=== PATIENT | female | born 1955 | race Two or more races ===

== ENCOUNTER 2018-11-24 19:55 | Inpatient (IN) | payer MEDICAID ==
[~2018-11-24] VITALS: Ht 162.6 cm; Wt 69.9 kg
--- NOTE | 2018-11-24 20:50 | NUR ---
BIN RA AMBULANCE FROM HD. PT IS AWAKE, RESPONDS TO TACTILE STIMULI. PT IS ON VENT AC 16 TV500 35% PEEP+5. C/O LOW BP REPOTED SBP 80-90 WHILE HAVING HD WHICH ONLY LAST X 1 HOUR PRIOR TO ARRIVAL AT THE ER. TEMP IS 100.2 RECTALLY. MADE AWARE. TO ER BED 2.
--- NOTE | 2018-11-24 20:54 | NUR ---
PT REC'D TRACHED VIA SHILEY 6 ON [facility] VENT SETTINGS GIVEN FROM TRANSPORT RT. PT SHOWS NO SIGNS OF RESP DISTRESS OR SOB. SX'D FOR THICK MOD AMT OF PALE YELLOW SECRETIONS. ALARMS ARE SET AND AUDIBLE. VENT PLUGGED INTO RED OUTLET. AMBU BAG BEDSIDE. WILL CONTINUE TO MONITOR. Addendum: 11/24/18 at 2055 by DIANA YOUNG RT Amended: Links added.
[2018-11-24] MEDS ORDERED: IV NS 0.9% 500 ML BAG IV ONE ×2 (21:00→22:30)
--- NOTE | 2018-11-24 21:30 | NUR ---
IV LINE OBTAINED ON RFA 20G. CULTURES OBTAINED
[2018-11-24 21:47] LABS: CALCIUM, SERUM 10.1 mg/dL (8.5-10.1); CARBON DIOXIDE 21 mmol/L (21-32); CHLORIDE 99 mmol/L (98-107); CREATININE 2.8 mg/dL (0.6-1.3); GLUCOSE 144 mg/dL (74-106); POTASSIUM 4.1 mmol/L (3.5-5.1); SODIUM SERUM 136 mmol/L (136-145); UREA NITROGEN, BLOOD 50 mg/dL (7-18)
[2018-11-24 21:52] LABS: ALANINE AMINOTRANSFERASE 7 U/L (12-78); ALBUMIN 1.6 g/dL (3.4-5.0); ALKALINE PHOSPHATASE 338 U/L (46-116); ASPARTATE AMINOTRANSFERASE 32 U/L (15-37); BILIRUBIN,DIRECT 0.1 mg/dL (0.0-0.2); BILIRUBIN,TOTAL 0.4 mg/dL (0.2-1.0); TOTAL PROTEIN, SERUM 5.8 g/dL (6.4-8.2)
--- NOTE | 2018-11-24 22:10 | NUR ---
BLOOD DRAWN WITH TECH AT BEDSIDE. EKG DONE. XRAY AWAITNG AT DOOR.
--- NOTE | 2018-11-24 22:11 | NUR ---
CALLED NURSING SUP. FOR LE BED
[2018-11-24 22:30] LABS: BASOPHILS # (AUTO) 0.1 /CMM (0.0-0.2); BASOPHILS % (AUTO) 0.3 % (0.0-2.0); EOSINOPHILS % (AUTO) 0.1 % (0.0-6.0); LYMPHOCYTES # (AUTO) 1.6 /CMM (0.8-4.8); LYMPHOCYTES % (AUTO) 3.5 % (20.0-44.0); MEAN CORPUSCULAR HGB CONC 31 g/dl (31.0-36.0); MEAN CORPUSCULAR VOLUME 92 fL (82-100); MONOCYTES # (AUTO) 0.7 /CMM (0.1-1.30); MONOCYTES % (AUTO) 1.6 % (2.0-12.0); NEUTROPHILS # (AUTO) 42.9 /CMM (1.8-8.9); NEUTROPHILS % (AUTO) 94.5 % (43.0-81.0); PLATELET COUNT (AUTO) 376 /CMM (150-450)
[2018-11-24] MEDS ORDERED: MEROPENEM 1 G in IV NS 0.9% 100 ML IV ONE (22:30)
[2018-11-24] MEDS ORDERED: VANCOMYCIN 1 GM in IV D5W 250 ML IV ONE (22:30)
[2018-11-24 22:38] LABS: RED BLOOD CELL COUNT(AUTO) 1.91 MIL/uL (4.0-5.2)
[2018-11-24 22:39] LABS: HEMOGLOBIN 5.4 g/dL (11.5-14.8); WHITE BLOOD COUNT (AUTO) 45.3 K/uL (4.3-11.0)
[2018-11-24 22:40] LABS: HEMATOCRIT 18 % (33-45)
--- NOTE | 2018-11-24 22:40 | NUR ---
URINE COLLECTED VIA STRAIGHT CATH. SENT TO LAB
--- NOTE | 2018-11-24 22:42 | NUR ---
PT BEING WHELED TO CT ON GURNEY WITH RN AND RT AT BEDSIDE. PT IS GOING STRAIGHT TO UNIT AFTER CT SCAN.
[2018-11-24] MEDS ORDERED: WATER FOR INJECTION,STERILE 10 ML ONE (22:59)
[2018-11-24] MEDS ORDERED: MEROPENEM 1 G VIAL IV ONE (22:59)
[2018-11-24] MEDS ORDERED: HYDROCODONE/APAP 5/325MG 1 EACH TABLET PO PRN (23:00)
[2018-11-24] MEDS ORDERED: MAG HYDROX/AL HYDROX/SIMETH 30 ML UDC PO PRN (23:00)
[2018-11-24] MEDS ORDERED: MAGNESIUM HYDROXIDE 30 ML UDC PO PRN (23:00)
[2018-11-24] MEDS ORDERED: ONDANSETRON HCL/PF 4 MG/2 ML VIAL IVP PRN (23:00)
[2018-11-24] MEDS ORDERED: MEROPENEM 500 MG in IV NS 0.9% 50 ML IV SCH (23:00)
[2018-11-24] MEDS ORDERED: Z GUARD REMEDY 2 OZ OINT TP PRN (23:00)
[2018-11-24] MEDS ORDERED: ACETAMINOPHEN 325 MG TABLET PO PRN (23:00)
[2018-11-24] MEDS ORDERED: ZOLPIDEM TARTRATE 5 MG TABLET PO PRN (23:00)
[2018-11-24 23:01] LABS: APPEARANCE,URINE Clear (CLEAR); BILIRUBIN,URINE Negative (NEGATIVE); BLOOD, URINE Moderate Ery/uL (NEGATIVE); KETONES,URINE Negative (NEGATIVE); LEUKOCYTE ESTERASE ,URINE Large (NEGATIVE); NITRITE, URINE Negative (NEGATIVE); PH,URINE 7.5 (5.0-8.0); PROTEIN,URINE >=300 mg/dl (NEGATIVE); UGLUCOSE Negative (NEGATIVE); UROBILINOGEN,URINE 0.2 EU/dL (0.2)
[2018-11-24 23:05] LABS: COLOR,URINE TURBID (YELLOW)
--- NOTE | 2018-11-24 23:15 | NUR ---
RECEIVED REPORT FROM ALLEY WORKERDIAMOND VILA FOR JOHNATHAN.
[2018-11-24] MEDS ORDERED: DEXTROSE 50%-WATER 50 ML DISP.SYRIN IV PRN (23:30)
--- NOTE | 2018-11-24 23:40 | NUR ---
MOLDING MACHINE OPERATOR HELPER OPENING NOTES RECEIVED PT FROM ER VIA MAURICE VALDEZ OF SEPSIS, SEVERE ANEMIA UNDER DR. ESPINOSA. PATIENT PLACED ON COIL PLACER SR WITH HR 91. VENT TRACH DEPENDENT, SETTING TOLERATING WELL BY PATIENT. VITAL SIGNS: SPO2 99%, BP 119/56, HR 91, TEMP 99, RR 19. PT NONVERBAL BUT RESPONDS TO TACTILE STIMULI. SKIN ASSESSMENT DONE, PICTURES TAKEN AND RECORDED. IV SITE RFA 20G SITE C/D/I. AURY HD CATH SITE C/D/I, BRUIT AND THRILL NOTED. RECTAL TUBE IN PLACE, DRAINING BROWN/LIQUID STOOL NOTED. SAFETY MEASURES IN PLACE. AWAITING ADMISSION ORDERS. WILL CONT TO MONITOR PT CLOSELY. Addendum: 11/25/18 at 0753 by SABRA CASILLAS RN CORRECTION: LE VILA NOTES
[2018-11-24] MEDS ORDERED: VANCOMYCIN 1 GM VIAL ONE (23:42)
[2018-11-25] VITALS (14 sets, daily range): BP systolic 119–161; BP diastolic 52–72
[2018-11-25] MEDS: BLOOD SUGAR DIAGNOSTIC 1 EACH STRIP IN SCH ×5 (00:25→23:38)
[2018-11-25 00:48] LABS: BACTERIA,URINE Many /HPF (None Seen); SQUAMOUS EPITHELIAL CELL,UR Many /HPF (None Seen); WBC,URINE 51-80 /HPF (0-3); YEAST,URINE Few /HPF (None Seen)
[2018-11-25 00:52] LABS: BAND % (MANUAL) 13 % (0.0-5.0); LYMPHOCYTES % (MANUAL) 2 % (16-48); MONOCYTES % (MANUAL) 12 % (0-11.0); NEUTROPHILS % (MANUAL) 70 (42-76)
[2018-11-25] MEDS ORDERED: MEROPENEM 250 MG in IV NS 0.9% 50 ML IV SCH (00:54)
[2018-11-25] MEDS ORDERED: INSULIN REGULAR, HUMAN 100 UNIT/ML 3 ML VIAL ONE (01:32)
[2018-11-25] MEDS: INSULIN REGULAR, HUMAN 100 UNIT/ML 3 ML VIAL SQ PRN ×2 (01:38→06:39)
[2018-11-25] MEDS ORDERED: VANCOMYCIN 1 GM in IV NS 0.9% 250 ML IV SCH (02:00)
--- NOTE | 2018-11-25 07:15 | NUR ---
LE RN CLOSING NOTES PATIENT OBTUNDED BUT RESPONDS TO TACTILE STIMULI. ON TELE MONITOR SR WITH HR 80S. VENT TRACH DEPENDENT, SETTING TOLERATING WELL BY PATIENT. IV SITE RFA 20G SITE C/D/I. AURY HD CATH SITE C/D/I, BRUIT AND THRILL NOTED. RECTAL TUBE IN PLACE, DRAINING BROWN/LIQUID STOOL NOTED. SAFETY MEASURES IN PLACE. ALL MD ORDERS ATTENDED. ALL NEEDS ANTICIPATED AND MET. ENDORSED TO AM RN FOR JOHNATHAN.
--- NOTE | 2018-11-25 07:30 | NUR ---
JOHANNA RN AM NOTES PT IN BED, OBTUNDED, OPENS EYES, SHILEY 6 TO MECHANICAL VENT, SETTINGS ORDERED, BREATHING EVEN AND UNLABORED, SR HR 83 ON TELE MONITOR, NO SIGNS OF PAIN, IV SITE RFA 20G SITE C/D/I. WITH ONGOING BLOOD TRANSFUSION BAG #1, AURY HD CATH SITE C/D/I, BRUIT AND THRILL NOTED. RECTAL TUBE IN PLACE, DRAINING BROWN/LIQUID STOOL NOTED. SAFETY MEASURES IN PLACE. FOR WOUND CONSULT, SEE NURSING FLOWSHEET FOR SKIN ISSUES. CALL LIGHT WITHIN REACH, SAFETY MEASURES IN PLACE. WILL CONT TO MONITOR PT CLOSELY. Addendum: 11/25/18 at 1121 by NATHALY QUIGLEY RN ADDENDUM GT IN PLACE, CLAMPED. NPO FOR NOW. ABDOMEN FIRM AND SLIGHTLY DISTENDED
[2018-11-25] MEDS ORDERED: FEE PK DOSING 1 MIN EA MC ONE (07:34)
[2018-11-25] MEDS ORDERED: VANCOMYCIN 500 MG in IV D5W 100 ML IV PRN (08:00)
[2018-11-25 08:16] LABS: OCCULT BLOOD STOOL NEGATIVE (NEGATIVE)
--- NOTE | 2018-11-25 08:39 | NUR ---
TD RN NOTES 2ND BAG 1 UNIT PRBC STARTED.
[2018-11-25] MEDS: MEROPENEM 500 MG in IV NS 0.9% 50 ML IV SCH ×2 (08:54→21:13)
[2018-11-25] MEDS ORDERED: PANTOPRAZOLE 40 MG VIAL IV SCH (09:00)
[2018-11-25] MEDS ORDERED: FAMOTIDINE/PF INJ 20 MG/2 ML VIAL IV SCH (09:00)
[2018-11-25] MEDS: NEXIUM 40 MG VIAL IV SCH (09:13)
[2018-11-25] MEDS ORDERED: INSU100V10 SQ (09:20)
[2018-11-25] MEDS ORDERED: INSU100V27 SQ (09:20)
[2018-11-25] MEDS ORDERED: FAMO-130 GT (09:20)
[2018-11-25] MEDS ORDERED: AMIO200T4 GT (09:20)
[2018-11-25] MEDS ORDERED: ATRO10DR OP (09:20)
[2018-11-25] MEDS ORDERED: LACT1CAP61 GT (09:20)
[2018-11-25] MEDS ORDERED: CHLO473M3 MM (09:20)
[2018-11-25] MEDS ORDERED: ONDA4TAB11 PO (09:20)
[2018-11-25] MEDS ORDERED: MINE3.5O OP (09:20)
[2018-11-25] MEDS ORDERED: DOCU-141 GT (09:20)
[2018-11-25] MEDS ORDERED: SEVE800T8 GT (09:20)
[2018-11-25] MEDS ORDERED: LEVE1000 GT (09:20)
[2018-11-25] MEDS ORDERED: PHEN100C4 GT (09:20)
[2018-11-25] MEDS ORDERED: PRED2.5T GT (09:20)
[2018-11-25] MEDS ORDERED: FERR300L GT (09:20)
[2018-11-25] MEDS ORDERED: MIDO5TAB GT (09:20)
[2018-11-25] MEDS ORDERED: LACO100T2 GT (09:20)
[2018-11-25] MEDS ORDERED: ACET-73 GT (09:20)
[2018-11-25] MEDS ORDERED: NUTR100037 GT (09:20)
[2018-11-25] MEDS ORDERED: WARF3TAB59 GT (09:20)
[2018-11-25] MEDS ORDERED: EPOE200011 IJ (09:20)
--- NOTE | 2018-11-25 09:30 | NUR ---
TD RN NOTES SEEN BY DR. ROBERT MONSIVAIS. GT DISLODGED. WILL CONSULT FOR SURGERY.
[2018-11-25] MEDS ORDERED: HYDR-4384 PO (09:34)
[2018-11-25] MEDS ORDERED: NA P133E RC (09:57)
[2018-11-25] MEDS ORDERED: CLON0.1T GT (09:57)
[2018-11-25] MEDS ORDERED: HEPA100D33 SQ (09:57)
[2018-11-25] MEDS ORDERED: CHOL10002 PO (09:57)
[2018-11-25] MEDS ORDERED: ATOR40TA GT (09:57)
[2018-11-25] MEDS ORDERED: ASPI-605 GT (09:57)
[2018-11-25] MEDS ORDERED: SEVE0.8P GT (09:57)
[2018-11-25] MEDS ORDERED: MAGN400O6 GT (09:57)
[2018-11-25] MEDS ORDERED: CLOP75TA15 PO (09:57)
[2018-11-25] MEDS ORDERED: FOLI0.8T2 PO (09:57)
[2018-11-25] MEDS ORDERED: BISA10SU61 RC (09:57)
[2018-11-25] MEDS ORDERED: INSU100I26 SQ (09:57)
--- NOTE | 2018-11-25 11:51 | NUR ---
TD RN N NOTES ACCUCHECK DONE. BS 182 MG/DL. NO INSULIN COVERAGE GIVEN AT THIS TIME.
[2018-11-25 12:54] LABS: ALBUMIN 1.6 g/dL (3.4-5.0); BILIRUBIN,TOTAL 0.5 mg/dL (0.2-1.0); CALCIUM, SERUM 9.5 mg/dL (8.5-10.1); CREATININE 2.8 mg/dL (0.6-1.3); MAGNESIUM 2.5 mg/dL (1.8-2.4); PHOSPHORUS 3.5 mg/dL (2.5-4.9); POTASSIUM 4.8 mmol/L (3.5-5.1); TOTAL PROTEIN, SERUM 6.1 g/dL (6.4-8.2)
[2018-11-25 13:00] LABS: BASOPHILS # (AUTO) 0.1 /CMM (0.0-0.2); BASOPHILS % (AUTO) 0.2 % (0.0-2.0); EOSINOPHILS % (AUTO) 0.2 % (0.0-6.0); HEMATOCRIT 32 % (33-45); HEMOGLOBIN 10.6 g/dL (11.5-14.8); LYMPHOCYTES # (AUTO) 0.9 /CMM (0.8-4.8); MEAN CORPUSCULAR HGB CONC 34 g/dl (31.0-36.0); MEAN CORPUSCULAR VOLUME 88 fL (82-100); MONOCYTES # (AUTO) 0.8 /CMM (0.1-1.30); MONOCYTES % (AUTO) 2.6 % (2.0-12.0); NEUTROPHILS # (AUTO) 28.5 /CMM (1.8-8.9); PLATELET COUNT (AUTO) 374 /CMM (150-450); RED BLOOD CELL COUNT(AUTO) 3.59 MIL/uL (4.0-5.2)
[2018-11-25 13:02] LABS: THYROID STIMULATING HORMONE 3.767 uIU/mL (0.358-3.74)
[2018-11-25 13:09] LABS: WHITE BLOOD COUNT (AUTO) 30.3 K/uL (4.3-11.0)
[2018-11-25 13:45] LABS: BAND % (MANUAL) 7 % (0.0-5.0); METAMYELOCYTES % 1 % (0-0); MONOCYTES % (MANUAL) 7 % (0-11.0); MYELOCYTES % 2 % (0-0); NEUTROPHILS % (MANUAL) 83 (42-76)
--- NOTE | 2018-11-25 17:19 | NUR ---
JOHANNA VILA N NOTES ACCUCHECK DONE. BS 215 MG/DL. NO INSULIN COVERAGE GIVEN AT THIS TIME. PATIENT REMAINS NPO SINCE LAST NIGHT. Addendum: 11/25/18 at 1754 by NATHALY QUIGLEY RN ADDENDUM: DR. ROBERT MONSIVAIS NOTIFIED BY CHARGE NURSE GEORGES.
--- NOTE | 2018-11-25 18:30 | NUR ---
TD RN CLOSING NOTES PT IN BED, OBTUNDED, OPENS EYES, SHILEY 6 TO MECHANICAL VENT, SETTINGS ORDERED, BREATHING EVEN AND UNLABORED, SR HR 80s ON TELE MONITOR, NO SIGNS OF PAIN, IV SITE RFA 20G SITE C/D/I. FLUSHES WELL SITE CLEAR. AURY HD CATH SITE C/D/I, BRUIT AND THRILL NOTED. RECTAL TUBE CHANGED AND IN PLACE, IRRIGATED, DRAINING BROWN/LIQUID STOOL NOTED. SAFETY MEASURES IN PLACE. STILL FOR WOUND CONSULT, REMAINS NPO. G TUBE REMOVED BY DR. GARCIA EARLIER. CDI DRESSING IN PLACE. CALL LIGHT WITHIN REACH, SAFETY MEASURES IN PLACE. ALL NEEDS MET. PM CARE AND WOUND TREATMENT DONE EARLIER. TURNED AND REPOSITIONED Q 2 HOURS. SUCTIONED PRN, HOB ELEVATED. WILL ENDORSE TO NEXT SHIFT FOR JOHNATHAN.
--- NOTE | 2018-11-25 20:00 | NUR ---
RN INITIAL NOTES RECEIVED PT IN BED, OBTUNDED, OPENS EYES, SHILEY 6 TO MECHANICAL VENT, SETTINGS ORDERED, BREATHING EVEN AND UNLABORED, SR HR 80s ON TELE MONITOR, NO SIGNS OF PAIN, IV SITE RFA 20G SITE C/D/I. FLUSHES WELL SITE CLEAR. AURY HD CATH SITE C/D/I, BRUIT AND THRILL NOTED. RECTAL TUBE IN PLACE. SAFETY MEASURES IN PLACE. PT NPO. CALL LIGHT WITHIN REACH, SAFETY MEASURES IN PLACE. ALL NEEDS MET. WILL CONT TO MONITOR.
[2018-11-26] VITALS: BP 137/42
[2018-11-26 04:00] VITALS: BP 153/45
--- NOTE | 2018-11-26 05:17 | NUR ---
PATIENT RECEIVED ON TRACH TO VENT WITH SETTINGS OF AC 16, 500 VT, 35%, +5. SUCTIONED FOR MINIMAL, THIN, YELLOW-CREAM SECRETIONS. AMBU BAG AT BEDSIDE. VENT AND PULSE OXIMETER ALARMS AUDIBLE AND VISIBLE. VENT PLUGGED INTO RED OUTLET. Addendum: 11/26/18 at 0519 by BRIANNA MOON RT Amended: Links added.
[2018-11-26] MEDS: BLOOD SUGAR DIAGNOSTIC 1 EACH STRIP IN SCH ×3 (05:37→18:31)
--- NOTE | 2018-11-26 07:02 | NUR ---
RN CLOSING NOTES NO CHANGE IN PTS CONDITION OVER NIGHT. ALL NEEDS ANTICIPATED AND MET. WILL ENDORSE TO AM RN.
--- NOTE | 2018-11-26 07:30 | NUR ---
RN NOTES RECEIVED PATIENT IN BED, OBTUNDED, TRACH AT MIDLINE POSITION, TRACH TO MECHANICAL VENT, SETTINGS PRESCRIBED, TOLERATING WELL. NO SOB NOTED. PATIENT CURRENTLY ON DIALYSIS TREATMENT. SINUS RHYTHM ON THE MONITOR WITH HR ON THE 80'S. IV ACCESS ON THE RFA 20G IN PLACE AND INTACT, PATENT ON FLUSHING. AVF ON THE AURY. RECTAL TUBE IN PLACE, DRAINING BROWN/LIQUID STOOL NOTED. SAFETY MEASURES OBSERVED AND MAINTAINED IN PLACE. HOB ELEVATED. BED LOW AND LOCKED POSITIONED. CALL LIGHT PLACED WITHIN REACH. WILL CONTINUE TO MONITOR AND ANTICIPATE NEEDS.
[2018-11-26 08:00] VITALS: BP_SYST 106; BP_SYST 119; BP_DIAS 39; BP_DIAS 56
[2018-11-26] MEDS: NEXIUM 40 MG VIAL IV SCH (09:19)
[2018-11-26] MEDS: MEROPENEM 500 MG in IV NS 0.9% 50 ML IV SCH ×2 (09:19→21:17)
--- NOTE | 2018-11-26 11:55 | NUR ---
WOUND CARE CONSULT: PT PRESENTS WITH MULTIPLE SKIN ISSUES AND WOUNDS, PRESENT ON ADMISSION INCLUDING STAGE 4 ULCER TO SACRUM, STAGE 2 ULCERS TO BUTTOCKS, LIQUID STOOL (RECTAL TUBE IN PLACE), RT FOOT AMPUTATION SITE WITH PAULETTE, RT HEEL BROWN DEEP TISSUE INJURY, LEFT BELOW KNEE AMPUTATION STUMP WITH INTACT DEEP TISSUE INJURY, RT HAND WOUND WITH YELLOW ADHERENT SLOUGH AND ODOROUS OLD G TUBE SITE (G TUBE REMOVED BY MD YESTERDAY PER NURSING REPORT). RECOMMENDATIONS MADE FOR SKIN PROTECTION AND WOUND CARE. DISCUSSED WITH NURSING STAFF. DEFER TO SURGEON FOR G TUBE SITE. WILL SEE PRN. SURGICAL AND DPM CONSULTS RECOMMENDED. DR HORNE AND DR KASH OLVERA NOTIFIED OF CONSULT REQUESTS. MD IN AGREEMENT WITH PLAN OF CARE. Addendum: 11/26/18 at 1159 by CAMDEN LEOSU Amended: Links added. Addendum: 11/26/18 at 1203 by CAMDEN RALPH WNTRACEU DEFER TO DPM FOR LOWER EXTREMITIES.
[2018-11-26 12:00] VITALS: BP 153/47
[2018-11-26] MEDS ORDERED: HYDROGEL DRESSING 90 GM TUBE TP PRN (12:00)
[2018-11-26] MEDS: HYDROGEL DRESSING 90 GM TUBE TP SCH (12:00)
[2018-11-26] MEDS: DAKINS QUARTER STRENGTH (0.125%) 480 ML BOTTLE TOP SCH (12:00)
[2018-11-26 16:00] VITALS: BP 131/33
[2018-11-26] MEDS: IV D5/ 0.9% NACL 1,000 ML IV PRN (18:44)
--- NOTE | 2018-11-26 19:32 | NUR ---
RN NOTES ENDORSED PATIENT FOR CONTINUITY OF CARE. NOT ON ANY FORM OF DISTRESS. NO ACUTE CHANGES WITHIN THE SHIFT. ALL NURSING NEEDS ATTENDED AND MET. SAFETY MEASURES IN PLACE AT ALL TIMES. Addendum: 11/27/18 at 0754 by GILDARDO LOZA RN INSULIN NOT GIVEN ALL THROUGH OUT THE DAY DUE TO PATIENT ON NPO STATUS
--- NOTE | 2018-11-26 19:38 | NUR ---
RT NOTE PATIENT RECEIVED TRACH'D ON MECHANICAL VENT. PATIENT IS TOLERATING CURRENT ORDERED SETTINGS. NO RESPIRATORY DISTRESS NOTED. MECHANICAL VENT IS PLUGGED INTO RED OUTLET. ALARMS ARE SET AND AUDIBLE. EMERGENCY EQUIPMENT IS AT PATIENT BEDSIDE. Addendum: 11/27/18 at 0612 by NATALIE GARCIA RT Amended: Links added.
--- NOTE | 2018-11-26 19:40 | NUR ---
RN INITIAL LE NOTES RECEIVED PT IN BED, OBTUNDED, OPENS EYES, SHILEY 6 TO AC MODE ON VENT, SETTINGS ORDERED, BREATHING EVEN AND UNLABORED, SR HR 70s ON TELE MONITOR, NO SIGNS OF PAIN, IV SITE RFA 20G SITE C/D/I. FLUSHES WELL SITE CLEAR. AURY HD CATH SITE C/D/I, BRUIT AND THRILL NOTED. RECTAL TUBE IN PLACE. SAFETY MEASURES IN PLACE. PT NPO GT MALFUNCTION. CALL LIGHT WITHIN REACH, SAFETY MEASURES IN PLACE. ALL NEEDS MET. WILL CONT TO MONITOR.
[2018-11-26 20:00] VITALS: BP 111/50
[2018-11-27] VITALS (7 sets, daily range): BP systolic 115–139; BP diastolic 48–71
[2018-11-27] MEDS: BLOOD SUGAR DIAGNOSTIC 1 EACH STRIP IN SCH ×5 (00:13→23:44)
[2018-11-27] MEDS: INSULIN REGULAR, HUMAN 100 UNIT/ML 3 ML VIAL SQ PRN ×3 (00:14→23:46)
--- NOTE | 2018-11-27 06:42 | NUR ---
RN LE CLOSING NOTES ENDORSED PT IN BED, OBTUNDED, OPENS EYES, SHILEY 6 TO AC MODE ON VENT, SETTINGS ORDERED, BREATHING EVEN AND UNLABORED, SR HR 70s ON TELE MONITOR, NO SIGNS OF PAIN, IV SITE RFA 20G SITE C/D/I. FLUSHES WELL SITE CLEAR. AURY HD CATH SITE C/D/I, BRUIT AND THRILL NOTED. RECTAL TUBE IN PLACE. SAFETY MEASURES IN PLACE. PT NPO GT MALFUNCTION. CALL LIGHT WITHIN REACH, SAFETY MEASURES IN PLACE. ALL NEEDS MET. WILL CONT TO MONITOR.
--- NOTE | 2018-11-27 07:30 | NUR ---
RN NOTES RECEIVED PATIENT IN BED, NOT ON ANY FORM OF DISTRESS, TOLERATING VENT SETTING WELL. NO SOB NOTED. SINUS RHYTHM ON THE MONITOR WITH HR ON THE 80'S. NO INDICATION OF PAIN AT THIS TIME. IV ACCESS ON THE RFA 20G IN PLACE AND INTACT, PATENT ON FLUSHING. WITH ONGOING IVF OF D5NS AT 75CC/HR. AVF ON THE AURY. RECTAL TUBE IN PLACE, DRAINING BROWN/LIQUID STOOL. SAFETY MEASURES OBSERVED AND MAINTAINED IN PLACE. HOB ELEVATED. BED LOW AND LOCKED POSITIONED. CALL LIGHT PLACED WITHIN REACH. WILL CONTINUE TO MONITOR AND ANTICIPATE NEEDS.
[2018-11-27 07:32] LABS: BASOPHILS # (AUTO) 0.1 /CMM (0.0-0.2); BASOPHILS % (AUTO) 0.4 % (0.0-2.0); EOSINOPHILS % (AUTO) 0.3 % (0.0-6.0); HEMATOCRIT 26 % (33-45); HEMOGLOBIN 8.6 g/dL (11.5-14.8); LYMPHOCYTES # (AUTO) 1.2 /CMM (0.8-4.8); LYMPHOCYTES % (AUTO) 5.5 % (20.0-44.0); MEAN CORPUSCULAR HGB CONC 33 g/dl (31.0-36.0); MEAN CORPUSCULAR VOLUME 90 fL (82-100); MONOCYTES # (AUTO) 0.8 /CMM (0.1-1.30); MONOCYTES % (AUTO) 3.6 % (2.0-12.0); NEUTROPHILS % (AUTO) 90.2 % (43.0-81.0); PLATELET COUNT (AUTO) 297 /CMM (150-450); RED BLOOD CELL COUNT(AUTO) 2.89 MIL/uL (4.0-5.2); WHITE BLOOD COUNT (AUTO) 22.2 K/uL (4.3-11.0)
[2018-11-27 08:06] LABS: CALCIUM, SERUM 8.3 mg/dL (8.5-10.1); CREATININE 2.8 mg/dL (0.6-1.3); MAGNESIUM 2.2 mg/dL (1.8-2.4); PHOSPHORUS 2.8 mg/dL (2.5-4.9); POTASSIUM 3.5 mmol/L (3.5-5.1)
[2018-11-27] MEDS: MEROPENEM 500 MG in IV NS 0.9% 50 ML IV SCH ×2 (08:45→21:11)
[2018-11-27] MEDS: HYDROGEL DRESSING 90 GM TUBE TP SCH (08:46)
[2018-11-27] MEDS: DAKINS QUARTER STRENGTH (0.125%) 480 ML BOTTLE TOP SCH (08:46)
[2018-11-27] MEDS: NEXIUM 40 MG VIAL IV SCH (08:47)
[2018-11-27] MEDS: IV D5/ 0.9% NACL 1,000 ML IV PRN (12:38)
--- NOTE | 2018-11-27 18:40 | NUR ---
RN NOTES PATIENT NOT GIVEN INSULIN DUE TO NPO STATUS
--- NOTE | 2018-11-27 19:13 | NUR ---
RN NOTES ENDORSED PATIENT FOR CONTINUITY OF CARE. NOT ON ANY FORM OF DISTRESS. NO ACUTE CHANGES WITHIN THE SHIFT. ALL NURSING NEEDS ATTENDED AND MET. SAFETY MEASURES IN PLACE AT ALL TIMES. CALL LIGHT PLACED WITHIN REACH
--- NOTE | 2018-11-27 20:00 | NUR ---
RN INITIAL NOTES RECEIVED PATIENT IN BED, NOT ON ANY FORM OF DISTRESS, TOLERATING VENT SETTING WELL. NO SOB NOTED. SINUS RHYTHM ON THE MONITOR WITH HR ON THE 80'S. NO INDICATION OF PAIN AT THIS TIME. IV ACCESS ON THE R UA IN PLACE AND INTACT, PATENT AND FLUSHING. WITH ONGOING IVF OF D5NS AT 75CC/HR. AVF ON THE AURY. RECTAL TUBE IN PLACE, DRAINING BROWN/LIQUID STOOL. SAFETY MEASURES OBSERVED AND MAINTAINED IN PLACE. HOB ELEVATED. BED IN LOW AND LOCKED POSITIONED. CALL LIGHT PLACED WITHIN REACH. WILL CONTINUE TO MONITOR.
[2018-11-28] VITALS: BP 117/51
[2018-11-28 04:00] VITALS: BP 133/50
--- NOTE | 2018-11-28 05:26 | NUR ---
RT TRACH TUBE IN PLACE, PATENT, AND SECURED. RECEIVED PATIENT ON VENT WITH ORDERED SETTINGS. ALARMS ON AND AUDIBLE. VENT PLUGGED IN THE RED OUTLET. AMBU BAG AND BACK UP TRACK BY THE BEDSIDE. SO SIGNS OF ANY RESPIRATORY DISTRESS AT THIS TIME. Addendum: 11/28/18 at 0528 by RADAMES GONZALEZ RT Amended: Links added.
[2018-11-28] MEDS: IV D5/ 0.9% NACL 1,000 ML IV PRN ×2 (06:20→23:39)
[2018-11-28] MEDS: BLOOD SUGAR DIAGNOSTIC 1 EACH STRIP IN SCH ×3 (06:20→17:47)
[2018-11-28] MEDS: INSULIN REGULAR, HUMAN 100 UNIT/ML 3 ML VIAL SQ PRN ×3 (06:27→17:48)
[2018-11-28 07:05] LABS: BASOPHILS % (AUTO) 0.3 % (0.0-2.0); EOSINOPHILS % (AUTO) 0.9 % (0.0-6.0); HEMATOCRIT 26 % (33-45); HEMOGLOBIN 8.6 g/dL (11.5-14.8); LYMPHOCYTES # (AUTO) 0.9 /CMM (0.8-4.8); LYMPHOCYTES % (AUTO) 4.7 % (20.0-44.0); MEAN CORPUSCULAR HGB CONC 34 g/dl (31.0-36.0); MEAN CORPUSCULAR VOLUME 90 fL (82-100); MONOCYTES # (AUTO) 0.7 /CMM (0.1-1.30); MONOCYTES % (AUTO) 3.8 % (2.0-12.0); NEUTROPHILS # (AUTO) 16.5 /CMM (1.8-8.9); NEUTROPHILS % (AUTO) 90.3 % (43.0-81.0); PLATELET COUNT (AUTO) 316 /CMM (150-450); RED BLOOD CELL COUNT(AUTO) 2.83 MIL/uL (4.0-5.2); WHITE BLOOD COUNT (AUTO) 18.2 K/uL (4.3-11.0)
--- NOTE | 2018-11-28 07:05 | NUR ---
RN NOTES RECEIVED PATIENT ON BED, VENT/TRACH DEPENDENT , TRACH SUCTIONING DONE, TOLERATING CURRENT VENT SETTING WELL, NO TELE SR HR IN 90'S , DRESSING TO ABDOMEN CLEAN, DRY AND INTACT, R UPPER ARM PICC LINE SITE CLEAN ,DRY AND INTACT, WITH D5NS AT 75CC/HR RUNNING , AVF ON THE AURY. RECTAL TUBE IN PLACE, DRAINING BROWN/LIQUID STOOL. SAFETY MEASURES OBSERVED AND MAINTAINED IN PLACE. HOB ELEVATED. BED IN LOCKED AND IN LOWEST POSITION . CALL LIGHT WITHIN EASY REACH. CONTINUE TO MONITOR.
--- NOTE | 2018-11-28 07:25 | NUR ---
RN CLOSING NOTES PT IN BED, OBTUNDED, OPENS EYES, ON VENT, SETTINGS ORDERED, BREATHING EVEN AND UNLABORED, SR HR 80s ON TELE MONITOR, NO SIGNS OF PAIN, IV SITE R UA MIDLINE. FLUSHES WELL SITE CLEAR, FLUIDS ORDERED. AURY HD CATH SITE C/D/I, BRUIT AND THRILL NOTED. RECTAL TUBE IN PLACE. SAFETY MEASURES IN PLACE. PT NPO R/T GT MALFUNCTION. CALL LIGHT WITHIN REACH, SAFETY MEASURES IN PLACE. ALL NEEDS MET. WILL ENDORSE TO AM RN.
[2018-11-28 08:00] VITALS: BP_SYST 132; BP_SYST 134; BP_DIAS 25; BP_DIAS 65
[2018-11-28 08:19] LABS: BAND % (MANUAL) 8 % (0.0-5.0); EOSINOPHILS % (MANUAL) 4 % (0-4); LYMPHOCYTES % (MANUAL) 10 % (16-48); METAMYELOCYTES % 1 % (0-0); MONOCYTES % (MANUAL) 5 % (0-11.0); MYELOCYTES % 1 % (0-0); NEUTROPHILS % (MANUAL) 69 (42-76)
[2018-11-28] MEDS: MEROPENEM 500 MG in IV NS 0.9% 50 ML IV SCH ×2 (08:41→21:03)
[2018-11-28] MEDS: NEXIUM 40 MG VIAL IV SCH (08:42)
[2018-11-28] MEDS: DAKINS QUARTER STRENGTH (0.125%) 480 ML BOTTLE TOP SCH (08:43)
[2018-11-28] MEDS: HYDROGEL DRESSING 90 GM TUBE TP SCH (08:43)
[2018-11-28 12:00] VITALS: BP_SYST 144; BP_SYST 145; BP_DIAS 54; BP_DIAS 68
[2018-11-28 13:22] LABS: CALCIUM, SERUM 8.7 mg/dL (8.5-10.1); CREATININE 3.4 mg/dL (0.6-1.3); MAGNESIUM 2.3 mg/dL (1.8-2.4); PHOSPHORUS 3.5 mg/dL (2.5-4.9); POTASSIUM 3.6 mmol/L (3.5-5.1)
[2018-11-28 16:00] VITALS: BP 113/39
[2018-11-28] MEDS ORDERED: VANCOMYCIN 1 GM in IV D5W 250 ML IV ONE (17:00)
--- NOTE | 2018-11-28 18:00 | NUR ---
RN NOTES PT RECEIVING HD AT THIS TIME, VSS STABLE, TRACH SUCTIONING DONE , NO SIGNIFICANT CHANGES NOTED ON THIS SHIFT , WILL ENDORSE TO MANAGER OF GLOBAL NURSE FOR CONTINUITY OF CARE .
--- NOTE | 2018-11-28 19:25 | NUR ---
RN NOTES, PATIENT IN BED, OBTUNDED, WITH EYES CLOSED, ON MECHANICAL VENTILATOR, TOLERATED SETTINGS WELL, ON TELE MONITOR, SR HR 80s NO SIGNS OF PAIN/DISCOMFORT, NO SOB/ACUTE DISTRESS NOTED, IV SITE R UA MIDLINE PATENT AND INTACT, AURY HD CATH SITE C/D/I, BRUIT AND THRILL NOTED, S/P HD, NO BLEEDING OR ABNORMALITY NOTED, RECTAL TUBE IN PLACE, SAFETY MEASURES IN PLACE, PT NPO AT TIME, , CALL LIGHT WITHIN REACH, SAFETY MEASURES IN PLACE, HOB ELEVATED AT ALL TIMES FOR ASPIRATION PRECAUTIONS, ALL NEEDS PROVIDED, WILL CONTINUE TO MONITOR CLOSELY,
--- NOTE | 2018-11-28 19:39 | NUR ---
RT PT RECEIVED TRACHED ON [facility] VENT ON CHARTED SETTINGS. NO SIGNS OF RESP DISTRESS/SOB NOTED. AIRWAY PATENT AND SECURED. SUPERVISING BAILIFF CHECK DONE. PT SUCTIONED. ALARMS SET AND AUDIBLE. VENT CONNECTED TO RED OUTLET. WILL CONTINUE TO MONITOR. Addendum: 11/28/18 at 2006 by KEY DALLAS RT Amended: Links added.
[2018-11-28 20:00] VITALS: BP 129/61
[2018-11-29] VITALS: BP 137/60
[2018-11-29] MEDS: BLOOD SUGAR DIAGNOSTIC 1 EACH STRIP IN SCH ×4 (00:53→18:29)
[2018-11-29] MEDS: INSULIN REGULAR, HUMAN 100 UNIT/ML 3 ML VIAL SQ PRN ×4 (00:58→18:29)
[2018-11-29 04:00] VITALS: BP_SYST 188; BP_SYST 197; BP_DIAS 55
[2018-11-29] MEDS: hydrALAZINE HCL IV 20 MG VIAL IV PRN (04:37)
[2018-11-29 06:44] LABS: BASOPHILS # (AUTO) 0.1 /CMM (0.0-0.2); BASOPHILS % (AUTO) 0.3 % (0.0-2.0); EOSINOPHILS % (AUTO) 0.4 % (0.0-6.0); HEMATOCRIT 26 % (33-45); HEMOGLOBIN 8.6 g/dL (11.5-14.8); LYMPHOCYTES # (AUTO) 1.1 /CMM (0.8-4.8); LYMPHOCYTES % (AUTO) 6.2 % (20.0-44.0); MEAN CORPUSCULAR HGB CONC 33 g/dl (31.0-36.0); MEAN CORPUSCULAR VOLUME 90 fL (82-100); MONOCYTES # (AUTO) 0.6 /CMM (0.1-1.30); MONOCYTES % (AUTO) 3.7 % (2.0-12.0); NEUTROPHILS # (AUTO) 15.6 /CMM (1.8-8.9); NEUTROPHILS % (AUTO) 89.4 % (43.0-81.0); PLATELET COUNT (AUTO) 299 /CMM (150-450); RED BLOOD CELL COUNT(AUTO) 2.88 MIL/uL (4.0-5.2); WHITE BLOOD COUNT (AUTO) 17.4 K/uL (4.3-11.0)
[2018-11-29 06:55] LABS: CALCIUM, SERUM 7.8 mg/dL (8.5-10.1); CREATININE 2.4 mg/dL (0.6-1.3); PHOSPHORUS 2.8 mg/dL (2.5-4.9); POTASSIUM 3.3 mmol/L (3.5-5.1)
--- NOTE | 2018-11-29 07:00 | NUR ---
RN NOTES, PATIENT IN BED, ON MECHANICAL VENTILATOR, TOLERATED SETTINGS WELL, ON TELE MONITOR, SR HR 80s NO SIGNS OF PAIN/DISCOMFORT, NO SOB/ACUTE DISTRESS NOTED, CONTINUE NPO, WITH ELEVATED BP IN THE MORNING HYDRALAZINE IVP ADMINISTERED ORDERED AND AFTER REASSESSMENT BP NOTED 154/55, 82 , SAFETY MEASURES IN PLACE, HOB ELEVATED AT ALL TIMES FOR ASPIRATION PRECAUTIONS, WILL ENDORSE CONTINUITY OF CARE TO ONCOMING NURSE.
--- NOTE | 2018-11-29 07:20 | NUR ---
RN OPENING NOTES PATIENT IN BED, OBTUNDED, OPENS EYES. ON TELE MONITOR SR, HR 80s. HAS A RECTAL TUBE WITH DARK BROWN BM. 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 PATIENT IS NPO AT THIS TIME, S/P GT REMOVAL. HAS A RIGHT UPPER ARM MIDLINE WITH D5NS RUNNING AT 75 ML/HR. AND A LEFT CW HD CATH, LAST DIALYSIS WAS YESTERDAY WITH 1500 ML OUT. NEGATIVE FOR CDIFF. BED LOCKED AND IN LOW POSITION. WILL CONTINUE TO MONITOR
[2018-11-29 07:42] LABS: BAND % (MANUAL) 22 % (0.0-5.0); LYMPHOCYTES % (MANUAL) 5 % (16-48); METAMYELOCYTES % 2 % (0-0); MONOCYTES % (MANUAL) 9 % (0-11.0); MYELOCYTES % 2 % (0-0); NEUTROPHILS % (MANUAL) 60 (42-76)
[2018-11-29 08:00] VITALS: BP 126/52
[2018-11-29] MEDS: DAKINS QUARTER STRENGTH (0.125%) 480 ML BOTTLE TOP SCH (08:22)
[2018-11-29] MEDS: NEXIUM 40 MG VIAL IV SCH (08:23)
[2018-11-29] MEDS: HYDROGEL DRESSING 90 GM TUBE TP SCH (08:23)
[2018-11-29] MEDS: MEROPENEM 500 MG in IV NS 0.9% 50 ML IV SCH ×2 (08:30→21:50)
--- NOTE | 2018-11-29 09:59 | NUR ---
RT NOTE RECEIVED PT MECHANICALLY VENTILATED VIA SHILEY 6 CUFFED TRACHEOSTOMY TUBE. CUFF INFLATED. TRACH TUBE MIDLINE AND SECURE. VENTILATOR SETTINGS PRESCRIBED. ALARMS SET PER PROTOCOL AND AUDIBLE. VENT PLUGGED IN TO RED OUTLET. AMBU BAG AT BED SIDE. NO DISTRESS NOTED AT MOMENT. Addendum: 11/29/18 at 0959 by JENNYFER SOTO RT Amended: Links added.
--- NOTE | 2018-11-29 10:05 | NUR ---
RN NOTES DR QUINTERO CAME TO SEE THE PATIENT. PER DR, GT SITE STILL HAS REDNESS IN THE AREA AND A LITTLE PUSS COMING OUT. GT IS STILL OPEN AND IS OK FOR REINSERTION. WILL REINSERT GT ONCE THE GT SITE IS NOT RED AND PUSS IS GONE.
--- NOTE | 2018-11-29 11:23 | NUR ---
RN NOTES DR HEWITT MADE ROUNDS. PER MD, INSERT A PICC LINE, POSSIBLE TPN SINCE PATIENT HAS NOT BEEN HAVING GTF SINCE ADMISSION. PICC LINE NURSE IN ROOM AT THIS TIME INSERTING THE PICC, AND TO DC MIDLINE.
--- NOTE | 2018-11-29 11:34 | NUR ---
RN NOTES RIGHT UPPER ARM PICC LINE - OK TO USE FOR TPN
[2018-11-29 12:00] VITALS: BP 131/55
[2018-11-29 16:00] VITALS: BP 154/61
--- NOTE | 2018-11-29 18:00 | NUR ---
RN NOTES GI DOCTOR CAME TO SEE PATIENT. PATIENT WILL BE NPO AT MIDNIGHT, DUE TO ABDOMINAL DEBRIDEMENT TOMORROW AT 11AM. WILL LET FAMILY SIGN CONSENT. GT SITE HAS BEEN HAVING SMALL AMOUNTS OF BLACK/RED FLUIDS COMING OUT. AWARE
--- NOTE | 2018-11-29 19:56 | NUR ---
RN CLOSING NOTES FAMILY AT BEDSIDE, PATIENT HAD A HUGE AMOUNT OF FLUIDS FROM THE GT SITE. EXPLAINED TO FAMILY THAT PATIENT HAS BEEN HAVING ONLY SMALL AMOUNTS, AND GI DOCTOR JUST SEEN THE PATIENT AND ITS PROBABLY FROM THE PALPATION. CONSENT HAS BEEN SIGNED BY , JENNYFER, FOR TOMORROW'S PROCEDURE. PATIENT HAS BEEN STABLE THROUGHOUT THE SHIFT. VITALS WITHIN NORMAL LIMITS. ALL MEDS GIVEN. REPOSITIONED PER PROTOCOL. NO SIGNS OF PAIN OR SOB. BED LOCKED AND IN LOWEST POSITION. ENDORSED TO NOC SHIFT FOR JOHNATHAN
[2018-11-29 20:00] VITALS: BP 121/58
[2018-11-29] MEDS: IV D5/ 0.9% NACL 1,000 ML IV PRN (20:12)
[2018-11-30] VITALS: BP 132/56
[2018-11-30] MEDS: BLOOD SUGAR DIAGNOSTIC 1 EACH STRIP IN SCH ×5 (00:52→23:15)
[2018-11-30] MEDS: INSULIN REGULAR, HUMAN 100 UNIT/ML 3 ML VIAL SQ PRN ×4 (00:56→18:01)
--- NOTE | 2018-11-30 02:35 | NUR ---
RT TRACH TUBE IN PLACE, PATENT,AND SECURED WITH TRACH TIE. DEEP TRACH SX WITH FLORES AND LAVAGED WITH NS. ORDERED SETTINGS CHARTED. VENT PLUGGED IN RED OUTLET. ALARMS ON AND AUDIBLE. AMBU BAG AND BACK UP TRACH BY THE BEDSIDE. WILL CONTINUE TO MONITOR. Addendum: 11/30/18 at 0239 by RADAMES GONZALEZ RT Amended: Links added.
[2018-11-30 04:00] VITALS: BP 152/55
--- NOTE | 2018-11-30 07:00 | NUR ---
RN AM SHIFT NOTE RECEIVED PATIENT FROM NIGHT NURSE. NPO AND GTUBE DISLODGED PER REPORT OF NIGHT RN. CONSENT SIGNED IN CHART FOR PROCEDURE TODAY . SIDE RAILS UP SAFETY MEASURES IN PLACE. IV PATENT AND INTACT RIGHT UPPER PICC LINE. VITALS WNL. CONTINUE TO MONITOR.
[2018-11-30 07:10] LABS: BASOPHILS % (AUTO) 0.3 % (0.0-2.0); EOSINOPHILS % (AUTO) 0.5 % (0.0-6.0); HEMATOCRIT 27 % (33-45); HEMOGLOBIN 8.5 g/dL (11.5-14.8); LYMPHOCYTES # (AUTO) 1.3 /CMM (0.8-4.8); MEAN CORPUSCULAR HGB CONC 32 g/dl (31.0-36.0); MEAN CORPUSCULAR VOLUME 92 fL (82-100); MONOCYTES # (AUTO) 0.8 /CMM (0.1-1.30); MONOCYTES % (AUTO) 5.3 % (2.0-12.0); NEUTROPHILS # (AUTO) 13.6 /CMM (1.8-8.9); NEUTROPHILS % (AUTO) 85.9 % (43.0-81.0); PLATELET COUNT (AUTO) 304 /CMM (150-450); RED BLOOD CELL COUNT(AUTO) 2.89 MIL/uL (4.0-5.2); WHITE BLOOD COUNT (AUTO) 15.8 K/uL (4.3-11.0)
[2018-11-30 07:22] LABS: CALCIUM, SERUM 8.2 mg/dL (8.5-10.1); CREATININE 2.8 mg/dL (0.6-1.3); MAGNESIUM 2.1 mg/dL (1.8-2.4); PHOSPHORUS 3.8 mg/dL (2.5-4.9); POTASSIUM 3.7 mmol/L (3.5-5.1)
[2018-11-30 08:00] VITALS: BP 120/59
[2018-11-30] MEDS: MEROPENEM 500 MG in IV NS 0.9% 50 ML IV SCH ×2 (08:03→21:14)
[2018-11-30] MEDS: HYDROGEL DRESSING 90 GM TUBE TP SCH (08:03)
[2018-11-30] MEDS: NEXIUM 40 MG VIAL IV SCH (08:03)
[2018-11-30] MEDS: DAKINS QUARTER STRENGTH (0.125%) 480 ML BOTTLE TOP SCH (08:03)
[2018-11-30] MEDS ORDERED: DESFLURANE 240 ML BOTTLE IH ONE (08:15)
[2018-11-30 08:37] LABS: BAND % (MANUAL) 8 % (0.0-5.0); LYMPHOCYTES % (MANUAL) 6 % (16-48); METAMYELOCYTES % 3 % (0-0); MONOCYTES % (MANUAL) 5 % (0-11.0); MYELOCYTES % 1 % (0-0); NEUTROPHILS % (MANUAL) 77 (42-76)
[2018-11-30] MEDS ORDERED: ANESTHESIA TRAY IN PYXIS 1 EA TRAY MC ONE (11:30)
[2018-11-30 12:00] VITALS: BP 118/49
[2018-11-30] MEDS ORDERED: EPOETIN ALFA (10,000 UNIT) 10,000 UNIT/ML VIAL IV ONE (15:30)
[2018-11-30 16:00] VITALS: BP 144/54
--- NOTE | 2018-11-30 16:45 | NUR ---
RN SHIFT NOTE PATIENT FAMILY AT BEDSIDE. AWARE OF PROCDEDURE AND JOB PLACEMENT SPECIALIST ASSIST NURSE TO INFORM FAMILY. PATIETN TOLERATED SURGERY WELL. IV PATENT AND INTACT. SPOKE WITH MD REGARDING IVF REDUCTION, DECREASED PER MD ORDER. RN INFORMED MD TO CALL SON TO UPDATE ON PATIENT CONDITION. NO NEW ORDERS FOR NUTRITIONAL SUPPLEMENT AT THIS TIME. CONTINUE TO MONITOR. WOUND MD CONSULT TO FOLLOW UP AFTER PERITONEAL SURGERY IN PLACE BY RN.
--- NOTE | 2018-11-30 17:34 | NUR ---
RT Pt received trach'd and on [facility] vent w ordered settings. Vent is plugged into red outlet w alarms set and audible. Trach is secure and patent. Bmv @ [employer]. Pt is awake and alert. Pt sx'd w no adverse reactions. No respiratory distress noted t/o shift Addendum: 11/30/18 at 1828 by JUAN PABLO SHELTON RT Amended: Links added.
--- NOTE | 2018-11-30 19:30 | NUR ---
TELE/RN ENTRY NOTES PATIENT RECEIVED IN BED, RESTING COMFORTABLY AT THIS TIME. NO S/S OF ACUTE DISTRESS NOTED. RESPIRATION EVEN AND UNLABORED. NO SOB NOTED. TRACH INTACT PATENT, CONNECTED TO VENT WITH PRESCRIBED SETTINGS. PATIENT OBTUNDED. NO S/S OF PAIN OR DISCOMFORT NOTED AT THIS TIME. JUAN MIGUEL PICC LINE NOTED WITH NO S/S OF INFECTION. RUNNING WITH D5 NS @30CC/HR. FLEXERIL IN PLACE, PATENT DRAINING WELL. WITH BLACKISH, GARNISH COLOR STOOL. LCW HD SITE NOTED WITH NO S/S OF INFECTION. PATIENT S/P SURGERY. SURGERY SITE NOTED WITH NO S/S OF INFECTION. NO FOUL ODOR NOTED, NO DRAINAGE NOTED. DRESSING INTACT. WILL CONTINUE TO MONITOR PATIENT PER PLAN OF CARE. SAFETY MAINTAINED. BED AT THE LOWEST POSITION, LOCKED. CALL LIGHT WITHIN REACH.
[2018-11-30 20:00] VITALS: BP 121/60
[2018-12-01] VITALS: BP 130/54
[2018-12-01 04:00] VITALS: BP 124/58
[2018-12-01] MEDS: BLOOD SUGAR DIAGNOSTIC 1 EACH STRIP IN SCH ×3 (06:50→17:44)
--- NOTE | 2018-12-01 06:56 | NUR ---
TELE/RN NOTES PATIENT IN STABLE CONDITION AT THIS TIME. NO S/S OF ACUTE DISTRESS NOTES. RESP EVEN AND UNLABORED. TRACH INTACT, PATENT, CONNECTED TO VENT WITH PRESCRIBED SETTINGS. NO S/S OF PAIN OR DISCOMFORT NOTED. KEPT CLEAN AND DRY. ALL DUE MEDS GIVEN ORDER. SAFETY MAINTAINED. BED AT THE LOWEST POSITION, LOCKED. CALL LIGHT WITHIN REACH. WILL ENDORSE TO AM SHIFT NURSE TO CONTINUE CARE PLANNED.
[2018-12-01 08:00] VITALS: BP 146/54
[2018-12-01] MEDS: MEROPENEM 500 MG in IV NS 0.9% 50 ML IV SCH ×2 (08:36→22:22)
[2018-12-01] MEDS: NEXIUM 40 MG VIAL IV SCH (08:36)
[2018-12-01] MEDS: HYDROGEL DRESSING 90 GM TUBE TP SCH (08:38)
[2018-12-01] MEDS: DAKINS QUARTER STRENGTH (0.125%) 480 ML BOTTLE TOP SCH (08:38)
--- NOTE | 2018-12-01 08:39 | NUR ---
WOUND CARE CONSULT: PT SEEN FOR ABDOMINAL WALL SURGERY SITE S/P ABSCESS. ABDOMINAL SURGICAL SITE HAS NARROW OPENING BUT IS VERY WIDE AND DEEP WITH UNDERMINING (LARGE CAVITY). DRAINAGE IS BROWN, PURULENT WITH FOUL ODOR AND SOME SEROSANGUINOUS DRAINAGE WELL. RECOMMENDATIONS MADE FOR WOUND CARE AND SKIN PROTECTION. DISCUSSED WITH NURSING STAFF AND TURPENTINE DISTILLER. LEFT FOR DR GARCIA. RECOMMEND SURGICAL FOLLOW UP. RECOMMEND DIETARY FOLLOW UP. WILL SEE PRN. SKAGGS IN AGREEMENT WITH PLAN OF CARE. Addendum: 12/01/18 at 0842 by CAMDEN RALPH WNDNU Amended: Links added.
[2018-12-01 12:00] VITALS: BP 153/30
[2018-12-01 12:29] LABS: BASOPHILS % (AUTO) 0.3 % (0.0-2.0); EOSINOPHILS % (AUTO) 0.3 % (0.0-6.0); HEMATOCRIT 24 % (33-45); HEMOGLOBIN 7.7 g/dL (11.5-14.8); LYMPHOCYTES # (AUTO) 1.6 /CMM (0.8-4.8); LYMPHOCYTES % (AUTO) 8.9 % (20.0-44.0); MEAN CORPUSCULAR HGB CONC 32 g/dl (31.0-36.0); MEAN CORPUSCULAR VOLUME 92 fL (82-100); MONOCYTES # (AUTO) 1.1 /CMM (0.1-1.30); NEUTROPHILS # (AUTO) 15.6 /CMM (1.8-8.9); NEUTROPHILS % (AUTO) 84.5 % (43.0-81.0); PLATELET COUNT (AUTO) 277 /CMM (150-450); RED BLOOD CELL COUNT(AUTO) 2.56 MIL/uL (4.0-5.2); WHITE BLOOD COUNT (AUTO) 18.5 K/uL (4.3-11.0)
[2018-12-01 12:52] LABS: CALCIUM, SERUM 7.3 mg/dL (8.5-10.1); CREATININE 2.5 mg/dL (0.6-1.3); MAGNESIUM 1.9 mg/dL (1.8-2.4); PHOSPHORUS 3.9 mg/dL (2.5-4.9); POTASSIUM 3.7 mmol/L (3.5-5.1)
[2018-12-01 13:37] LABS: BAND % (MANUAL) 9 % (0.0-5.0); LYMPHOCYTES % (MANUAL) 10 % (16-48); MONOCYTES % (MANUAL) 9 % (0-11.0); NEUTROPHILS % (MANUAL) 72 (42-76)
[2018-12-01] MEDS ORDERED: TPN/PPN PER PHARMACY IV PRN (14:00)
[2018-12-01] MEDS ORDERED: FEE TPN 1 MIN EA MC ONE (14:53)
--- NOTE | 2018-12-01 15:08 | NUR ---
RN NOTE MD ORDERED TPN FOR PATIENT THIS AFTERNOON. PHARMACY CALLED RN TO CLARIFY, WILL HAVE TPN READY BY THIS EVENING, MD AWARE. RN CALLED NURSING CUSTOM DRESSMAKER TO INFORM THEM WE NEED A MIDLINE INSERTION FOR TPN TO BE RAN, WELLL OTHER IV ATBS AND IRON SUPPLEMENTS. CONSENT SIGNED VIA TELEPHONE WITNESSED BY TWO NURSES FOR SACRAL DEBRIMENT, IN CHART, NEEDS MD SIGNATURE. CONTINUE TO MONITOR. WOUND NURSE CAME BY TO ASSESS PATIENT AND ASSIST WITH DRESSING CHANGE. RN PUT ORDER FOR WOUND DOCTOR TO FOLLOW THE CASE PER BATOOL WHO DID ABDOMINAL WALL ABSCESS SURGERY, NOT JUST WOUND NURSE. MD NEEDS TO FOLLOW CASE MD WOUND CONSULT WAS PUT IN BY RN DAY OF SURGERY. CONTINUE TO MONITOR.
[2018-12-01] MEDS: SOD FERRIC GLUC 125 MG in IV NS 0.9% 100 ML IV SCH (15:14)
[2018-12-01 16:00] VITALS: BP 198/52
[2018-12-01] MEDS ORDERED: MAGNESIUM IV PRN ×7 (16:00)
[2018-12-01] MEDS ORDERED: [UNRECOGNIZED DRUG - OTHER] IV PRN ×7 (16:00)
[2018-12-01] MEDS ORDERED: TPN ADDITIVES IV PRN ×7 (16:00)
[2018-12-01] MEDS ORDERED: SODIUM ACETATE IV PRN ×7 (16:00)
[2018-12-01] MEDS ORDERED: POTASSIUM ACETATE IV PRN ×7 (16:00)
[2018-12-01] MEDS: hydrALAZINE HCL IV 20 MG VIAL IV PRN (17:37)
[2018-12-01] MEDS ORDERED: TPN BAG #1 IV PRN ×14 (18:00)
--- NOTE | 2018-12-01 18:44 | NUR ---
RN CLOSING NOTE PATIENT OBTUNDED, IN BED, SIDE RAILS UP MONITOR CONNECTED PATIENT WNL EXCEPT OCCASSIONALY ELEVATED NORMAL HEART RATE. TUBE FEEDING PATENT AND INTACT, FLUSING WELL. MEDICATION [id number] WELL. CLEAN AND DRY, SIDE RAILS UP AND CALL L8T WITHIN REACH. AUNT CALLED RN UPDATED FAMILY ON PATIENT CONDITION.
--- NOTE | 2018-12-01 19:25 | NUR ---
RN Notes Received patient asleep HOB elevated on mechanical vent with settings in place and tolerated well. Tele monitor reads Sinus tach with heart rate at 111/min. Left upper arm PICC line patent and intact, AVF intact with bruit and thrill noted. Abdominal surgical incision clean, dry and intact. Flexi seal intact with black stool noted. and son at bedside POC discussed and verbalized understanding. Kept patient clean and dry. Will continue to monitor patient.
[2018-12-01 20:00] VITALS: BP 119/46
[2018-12-01] MEDS: FLUCONAZOLE IN NS 100 MG in PREMIX 1 EA IV SCH ×2 (21:19)
[2018-12-02] VITALS: BP 119/46
[2018-12-02] MEDS: BLOOD SUGAR DIAGNOSTIC 1 EACH STRIP IN SCH ×5 (00:06→23:25)
[2018-12-02] MEDS: INSULIN REGULAR, HUMAN 100 UNIT/ML 3 ML VIAL SQ PRN ×5 (00:08→23:27)
[2018-12-02 04:00] VITALS: BP 122/44
--- NOTE | 2018-12-02 05:04 | NUR ---
RT NOTED [facility] ON [facility] MODE. NO RESP DISTRESS OR SOB NOTED. TRACH IS PATENT AND SECURED. SX'D FOR THICK MOD AMT OF PALE YELLOW SECRETIONS. ALARMS ARE SET AND AUDIBLE. VENT PLUGGED INTO RED OUTLET. AMBU BAG BEDSIDE. WILL CONTINUE TO MONITOR. Addendum: 12/02/18 at 0505 by DIANA YOUNG RT Amended: Links added.
--- NOTE | 2018-12-02 06:57 | NUR ---
RN Notes Patient stable overnight, afebrile. Kept HOB elevated, no sob or signs of distress noted. Tele monitor reads sinus tach with heart rate at 107/min. Kept patient clean and dry, turned and repositioned per protocol. Suctioned secretions PRN. Sacral wound dressing done. Will endorse accordingly.
[2018-12-02 07:39] LABS: BASOPHILS % (AUTO) 0.1 % (0.0-2.0); EOSINOPHILS % (AUTO) 0.2 % (0.0-6.0); HEMATOCRIT 25 % (33-45); HEMOGLOBIN 7.8 g/dL (11.5-14.8); LYMPHOCYTES # (AUTO) 1.9 /CMM (0.8-4.8); MEAN CORPUSCULAR HGB CONC 32 g/dl (31.0-36.0); MEAN CORPUSCULAR VOLUME 92 fL (82-100); MONOCYTES # (AUTO) 1.1 /CMM (0.1-1.30); MONOCYTES % (AUTO) 6.5 % (2.0-12.0); NEUTROPHILS # (AUTO) 14.2 /CMM (1.8-8.9); NEUTROPHILS % (AUTO) 82.2 % (43.0-81.0); PLATELET COUNT (AUTO) 327 /CMM (150-450); RED BLOOD CELL COUNT(AUTO) 2.65 MIL/uL (4.0-5.2); WHITE BLOOD COUNT (AUTO) 17.2 K/uL (4.3-11.0)
[2018-12-02 08:00] VITALS: BP 134/33
[2018-12-02 08:04] LABS: CALCIUM, SERUM 8.4 mg/dL (8.5-10.1); CREATININE 2.9 mg/dL (0.6-1.3); PHOSPHORUS 4.4 mg/dL (2.5-4.9); POTASSIUM 3.6 mmol/L (3.5-5.1)
[2018-12-02] MEDS: MEROPENEM 500 MG in IV NS 0.9% 50 ML IV SCH ×2 (08:57→21:26)
[2018-12-02 08:59] LABS: BAND % (MANUAL) 12 % (0.0-5.0); LYMPHOCYTES % (MANUAL) 17 % (16-48); METAMYELOCYTES % 1 % (0-0); MONOCYTES % (MANUAL) 5 % (0-11.0); MYELOCYTES % 1 % (0-0); NEUTROPHILS % (MANUAL) 61 (42-76); PROMYELOCYTES % 1 % (0-0); REACTIVE LYMPHOCYTES 2 % (0-0)
[2018-12-02] MEDS: NEXIUM 40 MG VIAL IV SCH (09:02)
[2018-12-02] MEDS: HYDROGEL DRESSING 90 GM TUBE TP SCH (09:11)
[2018-12-02 12:00] VITALS: BP 116/24
[2018-12-02] MEDS: DAKINS QUARTER STRENGTH (0.125%) 480 ML BOTTLE TOP SCH (12:42)
[2018-12-02 13:47] LABS: CHOLESTEROL 94 mg/dL (<200); HDL CHOLESTEROL 33 mg/dL (40-60); LDL 42 mg/dL (0-99); TRIGLYCERIDES 130 mg/dL (30-150)
[2018-12-02] MEDS: SOD FERRIC GLUC 125 MG in IV NS 0.9% 100 ML IV SCH (13:58)
[2018-12-02] MEDS ORDERED: VANCOMYCIN 500 MG in IV D5W 100 ML IV ONE (15:00)
[2018-12-02] MEDS ORDERED: TPN BAG #2 IV PRN ×7 (15:30)
[2018-12-02] MEDS: FAT EMULSION 20% 500 ML in PREMIX 1 EA IV SCH (17:43)
--- NOTE | 2018-12-02 19:30 | NUR ---
CHANGE MANAGEMENT SINUS TACHY 110 ON CARDIAC MONITORING
--- NOTE | 2018-12-02 19:44 | NUR ---
Handoff to CADENCE Leo. Rip Morales RN
--- NOTE | 2018-12-02 19:52 | NUR ---
MS RN RECEIVE PT IN BED OBTUNDED, TOLERATING VENT ORDERED, STABLE, NO S/S OF DISTRESS, SAFETY MEASURES IN PLACE. WILL CONTINUE TO MONITOR.
[2018-12-02 20:00] VITALS: BP 129/43
[2018-12-02] MEDS: FLUCONAZOLE IN NS 100 MG in PREMIX 1 EA IV SCH ×2 (21:26)
--- NOTE | 2018-12-02 21:33 | NUR ---
CHECKING BLOOD SUGAR NO SLIDING SCALE COVERAGE AT THIS TIME NOT DUE UNTIL 0000
--- NOTE | 2018-12-02 23:20 | NUR ---
BLOOD SUGAR 243 MG/DL 4 UNITS R INSULIN GIVEN PER SLIDING SCALE
[2018-12-03] VITALS: BP 125/43
--- NOTE | 2018-12-03 02:36 | NUR ---
RT NOTE PT RCVD TRACH'D ON MECHANICAL VENT WITH CHARTED SETTINGS. SX DONE. PT TRACH IS PATENT AND SECURE. VENT IS PLUGGED INTO RED OUTLET. ALARMS ARE ON AND AUDIBLE. AMBU BAG AT BEDSIDE. WILL CONTINUE TO MONITOR. Addendum: 12/03/18 at 0238 by PEDRO PABLO MARTINEZ RT Amended: Links added.
[2018-12-03 04:00] VITALS: BP 140/51
[2018-12-03] MEDS: BLOOD SUGAR DIAGNOSTIC 1 EACH STRIP IN SCH ×4 (05:04→23:16)
[2018-12-03] MEDS: INSULIN REGULAR, HUMAN 100 UNIT/ML 3 ML VIAL SQ PRN ×4 (05:07→23:21)
--- NOTE | 2018-12-03 06:35 | NUR ---
BUSINESS ANALYSIS PROFESSIONAL CLOSING IN BED PT OBTUNDED RESPONDS TO TACTILE STIMULI OPENS EYES, NO ACUTE CHANGES THROUGHOUT THE SHIFT. TOLERATING VENT SETTING ORDERED 02 SAT 100%. ON TELE MONITOR SINUS TACHY WITH HR 100'S. RESPIRATION EVEN AND UNLABORED, KEPT CLEAN AND DRY AND COMFORTABLE. NEEDS ATTENDED AND ANTICIPATED, NURSING CARE RENDERED, OFFLOAD HEELS AND ELBOWS AT ALL TIMES. REPOSITIONED EVERY 2 HOURS. TREATMENT ORDERED. GOOD SKIN CARE PROVIDED. RECTAL TUBE IN PLACE DRAINING BROWN LIQUID STOOL. SAFETY MEASURES AT ALL TIMES. ENDORSE TO THE NEXT SHIFT.
--- NOTE | 2018-12-03 07:30 | NUR ---
RN OPENING NOTES RECEIVED PATIENT IN BED SLEEPING COMFORTABLY. EASILY AROUSABLE. NO PAIN OR ACUTE DISTRESS AT THIS TIME. RESPIRATION EVEN AND UNLABORED. SKIN IS DRY WARM TO TOUCH. PATIENT NOTED WITH JUAN MIGUEL IV ACCESS. PATENT AND FLUSHING WELL. NO S/S OR INFILTRATION AND INFECTION. HOB ELEVATED AT ALL TIMES. PATIENT ON TPN. TOLERATED WELL. ALL NEEDS ANTICIPATED KEPT CLEAN AND DRY. CALL LIGHT WITHIN REACHED. BED LOCKED AND IN LOWEST POSITION. SAFETY MEASURES OBSERVED. REPOSITIONED Q2 HOURS. WILL CONTINUE TO MONITOR.
[2018-12-03 07:52] LABS: CALCIUM, SERUM 7.9 mg/dL (8.5-10.1); CREATININE 2.5 mg/dL (0.6-1.3); MAGNESIUM 1.9 mg/dL (1.8-2.4); PHOSPHORUS 3.2 mg/dL (2.5-4.9); POTASSIUM 3.7 mmol/L (3.5-5.1)
[2018-12-03 08:00] VITALS: BP_SYST 135; BP_SYST 175; BP_DIAS 55; BP_DIAS 72
[2018-12-03] MEDS: NEXIUM 40 MG VIAL IV SCH (09:08)
[2018-12-03] MEDS: MEROPENEM 500 MG in IV NS 0.9% 50 ML IV SCH ×2 (09:08→20:10)
[2018-12-03] MEDS: DAKINS QUARTER STRENGTH (0.125%) 480 ML BOTTLE TOP SCH (09:09)
[2018-12-03] MEDS: HYDROGEL DRESSING 90 GM TUBE TP SCH (09:10)
[2018-12-03 12:00] VITALS: BP_SYST 145; BP_SYST 161; BP_DIAS 54; BP_DIAS 64
[2018-12-03] MEDS ORDERED: MVI ADULT IV SCH (13:00)
[2018-12-03] MEDS ORDERED: TRACE ELEMENTS IV SCH (13:00)
[2018-12-03] MEDS ORDERED: TPN BAG #3 IV PRN (13:00)
[2018-12-03] MEDS ORDERED: [UNRECOGNIZED DRUG - OTHER] IV SCH (13:00)
[2018-12-03] MEDS ORDERED: TPN BAG #4 IV SCH ×7 (14:00→14:30)
[2018-12-03] MEDS ORDERED: SILVER NITRATE APPLICATOR 1 EA BOX TP ONE (14:00)
[2018-12-03] MEDS: SOD FERRIC GLUC 125 MG in IV NS 0.9% 100 ML IV SCH (14:18)
[2018-12-03] MEDS ORDERED: TPN BAG #4 IV PRN ×7 (15:15→15:30)
[2018-12-03] MEDS ORDERED: TPN BAG #3 IV SCH ×2 (15:30)
[2018-12-03 16:00] VITALS: BP_SYST 155; BP_SYST 167; BP_DIAS 63; BP_DIAS 75
--- NOTE | 2018-12-03 18:35 | NUR ---
RN CLOSING NOTES PATIENT CONTINUES TO REMAIN IS STABLE CONDITION. IV ACCESS ON JUAN MIGUEL PATENT AND FLUSHING WELL. PATIENT WAS ABLE TO TOLERATE TPN AND ATB MEDICATIONS WELL. NO ADVERSE REACTIONS. DEBRIDEMENT WAS ALSO DONE. PATIENT WAS ABLE TO TOLERATE THE PROCEDURE WELL. ALL NEEDS ANTICIPATED KEPT CLEAN AND DRY. CALL LIGHT WITHIN REACH. BED LOCKED AND IN LOWEST POSITION. SAFETY MEASURES OBSERVED. REPOSITIONED Q2 HOURS. ENDORSED TO PM NURSE FOR JOHNATHAN.
--- NOTE | 2018-12-03 19:46 | NUR ---
KEY SANDER NOTES RECEIVED PT ON BED. OBTUNDED. ON [facility] V[facility] SETTING NO RESPIRATORY DISTRESS NOTED. IV ACCESS PICC JUAN MIGUEL WITH TPN BAG #3 RUNNING @ 60CC/HR. ON TELE MONITOR ST 106. ON FLEXISEAL DRAINING BROWN RESIDUE. HEAD OF BED ELEVATED. SIDE RAILS UP CALL LIGHT WITHIN REACH. BED ALARM ON. WILL CONTINUE TO MONITOR CLOSELY.
[2018-12-03 20:00] VITALS: BP 158/86
[2018-12-03] MEDS: FLUCONAZOLE IN NS 100 MG in PREMIX 1 EA IV SCH ×2 (20:44)
--- NOTE | 2018-12-03 21:28 | NUR ---
HEEL SPLITTER OPENING NOTES: RECEIVED PT AND IS ON MECHANICAL VENT WITH SHIELY #6 AND VENT SETTINGS AC 16, TV 500, FI02 30%, AND PEEP 5. PT ON TELE MONITOR AND READING SHOWS ST 101. PT HAS FLEXISEAL AND IS DRAINING BROWN RESIDUE. PT HAS NO G TUBE AT THIS TIME. PT ON TPN BAG #3 AT 60ML/HR. PT HAS JUAN MIGUEL PICC LINE TRIPLE LUMEN. PT ALSO HAS MERREM RUNNING AT 100ML/HR. PT OBTUNDED. BED KEPT IN LOW, LOCKED POSITION, AND SIDE RAILS X 2UP. WILL CONTINUE TO MONITOR PT. Addendum: 12/03/18 at 2337 by ASHOK CADET RN NOTED AURY AVF AND INTACT AND KEPT CLEAN AND DRY.
--- NOTE | 2018-12-03 23:23 | NUR ---
BARREL WATERER NOTES: BLOOD SUGAR WAS 158. 2 UNITS OF INSULIN WAS ADMINISTERED . PT ON TPN FLUIDS AT 60ML/HR. WILL CONTINUE TO MONITOR.
[2018-12-04] VITALS (8 sets, daily range): BP systolic 135–170; BP diastolic 58–66
[2018-12-04] MEDS: BLOOD SUGAR DIAGNOSTIC 1 EACH STRIP IN SCH ×4 (05:15→23:06)
[2018-12-04] MEDS: INSULIN REGULAR, HUMAN 100 UNIT/ML 3 ML VIAL SQ PRN ×3 (05:35→23:08)
--- NOTE | 2018-12-04 05:37 | NUR ---
MEDICAL OFFICE ASST NOTES: BLOOD SUGAR THIS AM WAS 153. 2 UNITS OF INSULIN WAS ADMINISTERED. WILL CONTINUE TO MONITOR. PT ALSO ON TPN AT 60ML/HR.
--- NOTE | 2018-12-04 06:15 | NUR ---
SEAM CLOSER CLOSING NOTES: ALL NEEDS WERE ATTENDED AND ANTICIPATED FOR. PT REMAINS OBTUNDED. PT ON SHILEY #6 AND REMAINS ON VENT SETTINGS SHILEY #6, AC 16, TV 500, 30% FI02, AND PEEP 5. PT ON TELE MONITOR AND READING SHOWS ST 100-110. PT HAS JUAN MIGUEL PICC LINE TRIPLE LUMEN AND HAS BEEN FLUSHED AND IS BEING INFUSED WITH TPN #3 BAG AT 60ML/R. PT SUCTIONED PRN. PT ON CONT PULSE OX AND IS SATURATING 100%. WOUND TX PERFORMED ORDERED. PT TURNED AND REPOSITIONED Q 2HRS. FLEXISEAL REMAINS IN PLACE AND IS DRAINING BROWN LIQUID RESIDUE. BED KEPT IN LOW, LOCKED POSITION, AND SIDE RAILS X 2UP. WILL ENDORSE TO AM NURSE FOR JOHNATHAN.
[2018-12-04 07:20] LABS: CALCIUM, SERUM 7.9 mg/dL (8.5-10.1); CREATININE 2.8 mg/dL (0.6-1.3); MAGNESIUM 1.9 mg/dL (1.8-2.4); PHOSPHORUS 4.3 mg/dL (2.5-4.9)
--- NOTE | 2018-12-04 07:25 | NUR ---
RN OPENING NOTES PATIENT IN BED, OBTUNDED. NO SIGNS OF ANY PAIN NOR DISTRESS. PATIENT ON VENT, SATING 100%. ON TELE MONITOR, SR HR 100s. PATIENT HAS LEFT BKA AND RIGHT TMA. ON TPN, CURRENTLY ON BAG #3. HAS A PICC RIGHT UA WITH 3 PORTS. HAS LEFT UA AV FISTULA. HAD SACRAL DEBRIDEMENT 12/03. PATIENT HAS FLEXISEAL WITH DARK BROWN BM. PER MD, CONTINUE HOSPITALIZATION. BED LOCKED AND IN LOW POSITION. WILL CONTINUE TO MONITOR CLOSELY
--- NOTE | 2018-12-04 08:00 | NUR ---
RN NOTES PATIENT HAVING DIALYSIS RIGHT NOW.
[2018-12-04] MEDS: MEROPENEM 500 MG in IV NS 0.9% 50 ML IV SCH ×2 (08:19→20:24)
[2018-12-04] MEDS: NEXIUM 40 MG VIAL IV SCH (08:19)
[2018-12-04] MEDS: DAKINS QUARTER STRENGTH (0.125%) 480 ML BOTTLE TOP SCH (08:30)
[2018-12-04] MEDS: HYDROGEL DRESSING 90 GM TUBE TP SCH (08:30)
[2018-12-04] MEDS ORDERED: TPN BAG #5 IV PRN ×4 (10:00)
[2018-12-04] MEDS: SOD FERRIC GLUC 125 MG in IV NS 0.9% 100 ML IV SCH (14:40)
[2018-12-04] MEDS: FAT EMULSION 20% 500 ML in PREMIX 1 EA IV SCH (16:01)
--- NOTE | 2018-12-04 16:35 | NUR ---
RT RECEIVED PT ON MECHANICAL VENT WITH ORDERED SETTINGS. TRACH TUBE IN PLACE, PATENT, AND SECURED WITH TRACH TIE. VENT ALARMS ON AND AUDIBLE. VENT PLUGGED IN TO RED OUTLET. AMBU BAG AND BACK UP TRACH AT BEDSIDE. NO SIGNS OF ANY RESP DISTRESS AT THIS TIME. Addendum: 12/04/18 at 1637 by RADAMES GONZALEZ RT Amended: Links added.
--- NOTE | 2018-12-04 18:47 | NUR ---
RN CLOSING NOTES PATIENT IN BED, OBTUNDED. ON VENT, SATING 100%. ON TELE MONITOR, ST HR 100-110s. HAS GENERALIZED EDEMA, MOSTLY ON BUE. HAS FLEXISEAL WITH DARK BROWN BM. NO URINE OUTPUT. DIALYSIS TODAY, 1.5L OUT. WOUND CARE DONE. TPN BAG #4 RUNNING AND LIPIDS. RIGHT UA PICC LINE. HAS A LEFT UA FISTULA. INSULIN COVERAGE GIVEN. PLAN TO TRANSFER TO [facility] ONCE STABLE AND CONTINUE OF CARE. BED LOCKED AND IN LOW POSITION. WILL ENDORSE TO NOC SHIFT FOR JOHNATHAN
--- NOTE | 2018-12-04 19:48 | NUR ---
PEDIATRIC CARDIOLOGIST NOTES RECEIVED PT ON BED. OBTUNDED. ON TELE MONITOR ST 105. ON [facility] VENT SETTING SATURATING 94%. FLEXISEAL DRAINING BROWN RESIDUE. JUAN MIGUEL PICC PATENT AND INTACT WITH TPN BAG #4 RUNNING AND LIPID @20CC/HR. HEAD OF BED ELEVATED. SIDE RAILS UP. CALL LIGHT WITHIN REACH. BED ALARM ON. WILL CONTINUE TO MONITOR PT CLOSELY.
[2018-12-04] MEDS: FLUCONAZOLE IN NS 100 MG in PREMIX 1 EA IV SCH ×2 (21:37)
[2018-12-05] VITALS: BP 157/54
[2018-12-05 04:00] VITALS: BP 157/56
[2018-12-05] MEDS: BLOOD SUGAR DIAGNOSTIC 1 EACH STRIP IN SCH ×4 (05:08→23:06)
[2018-12-05] MEDS: INSULIN REGULAR, HUMAN 100 UNIT/ML 3 ML VIAL SQ PRN ×4 (05:09→23:19)
--- NOTE | 2018-12-05 07:18 | NUR ---
QUALITATIVE EXECUTIVE RESEARCHER NOTES NO ACUTE CHANGES NOTED DURING THE SHIFT. WOUND CARE DONE. NO ACTIVE BLEEDING NOTED. TPN BAG 5 AND LIPID RUNNING WELL. JUAN MIGUEL PICC PATENT AND INTACT. WILL ENDORSE TO THE AM NURSE FOR CONTINUITY OF CARE.
--- NOTE | 2018-12-05 07:30 | NUR ---
TD RN AM NOTES PT IN BED, OBTUNDED, OPENS EYES, SHILEY 6 TO MECHANICAL VENT, SETTINGS ORDERED, BREATHING EVEN AND UNLABORED, ST HR 112 ON TELE MONITOR, NO SIGNS OF PAIN, JUAN MIGUEL PICC LINE C/D/I. WITH ONGOING TPN BAG #5 AND LIPIDS INFUSING WELL, AURY HD CATH SITE C/D/I, BRUIT AND THRILL NOTED. RECTAL TUBE IN PLACE, DRAINING BROWN/LIQUID STOOL NOTED. SAFETY MEASURES IN PLACE. SEE NURSING FLOWSHEET FOR SKIN ISSUES. WILL PERFORM PRESCRIBED WOUND TREATMENT AND TURN AND REPOSITION Q 2 HOURS. CALL LIGHT WITHIN REACH, SAFETY MEASURES IN PLACE. WILL CONT TO MONITOR PT CLOSELY.
[2018-12-05 08:00] VITALS: BP 190/72
[2018-12-05 08:19] LABS: BASOPHILS # (AUTO) 0.1 /CMM (0.0-0.2); EOSINOPHILS % (AUTO) 0.4 % (0.0-6.0); HEMATOCRIT 21 % (33-45); HEMOGLOBIN 7.4 g/dL (11.5-14.8); LYMPHOCYTES # (AUTO) 1.2 /CMM (0.8-4.8); LYMPHOCYTES % (AUTO) 8.8 % (20.0-44.0); MEAN CORPUSCULAR HGB CONC 35 g/dl (31.0-36.0); MEAN CORPUSCULAR VOLUME 91 fL (82-100); MONOCYTES # (AUTO) 0.5 /CMM (0.1-1.30); MONOCYTES % (AUTO) 3.9 % (2.0-12.0); NEUTROPHILS # (AUTO) 11.9 /CMM (1.8-8.9); NEUTROPHILS % (AUTO) 85.9 % (43.0-81.0); PLATELET COUNT (AUTO) 280 /CMM (150-450); RED BLOOD CELL COUNT(AUTO) 2.36 MIL/uL (4.0-5.2); WHITE BLOOD COUNT (AUTO) 13.9 K/uL (4.3-11.0)
[2018-12-05 08:31] LABS: CALCIUM, SERUM 7.3 mg/dL (8.5-10.1); CREATININE 1.9 mg/dL (0.6-1.3); MAGNESIUM 1.8 mg/dL (1.8-2.4); PHOSPHORUS 3.8 mg/dL (2.5-4.9); POTASSIUM 3.6 mmol/L (3.5-5.1)
[2018-12-05] MEDS: NEXIUM 40 MG VIAL IV SCH (08:54)
[2018-12-05] MEDS: MEROPENEM 500 MG in IV NS 0.9% 50 ML IV SCH ×2 (08:54→21:12)
[2018-12-05] MEDS: HYDROGEL DRESSING 90 GM TUBE TP SCH (08:55)
[2018-12-05] MEDS: DAKINS QUARTER STRENGTH (0.125%) 480 ML BOTTLE TOP SCH (09:00)
[2018-12-05 09:15] LABS: BAND % (MANUAL) 10 % (0.0-5.0); EOSINOPHILS % (MANUAL) 1 % (0-4); LYMPHOCYTES % (MANUAL) 8 % (16-48); METAMYELOCYTES % 2 % (0-0); MONOCYTES % (MANUAL) 4 % (0-11.0); MYELOCYTES % 5 % (0-0); NEUTROPHILS % (MANUAL) 70 (42-76)
--- NOTE | 2018-12-05 09:30 | NUR ---
PORTER SAMPLE CASE NOTES DUE MEDS GIVEN
--- NOTE | 2018-12-05 11:46 | NUR ---
TD RN N NOTES ACCUCHECK DONE. BS 170 MG/DL. 3 UNITS HUM R GIVEN PER SLIDING SCALE RT THIGH.
[2018-12-05 12:00] VITALS: BP 120/60
[2018-12-05] MEDS ORDERED: TPN BAG #6 IV PRN ×4 (12:00)
[2018-12-05] MEDS ORDERED: TPN BAG #7 IV PRN ×2 (12:00)
[2018-12-05] MEDS ORDERED: ALBUMIN 25% 25 GM in PREMIX 1 EA IV PRN (14:00)
--- NOTE | 2018-12-05 14:20 | NUR ---
GEOLOGY ASSOCIATE NOTES HD COMPLETED. 5 LITERS OUTPUT
[2018-12-05] MEDS: SOD FERRIC GLUC 125 MG in IV NS 0.9% 100 ML IV SCH (14:54)
[2018-12-05 16:00] VITALS: BP 143/55
--- NOTE | 2018-12-05 17:23 | NUR ---
RT VT titrated post abg per Dr. Silver. Addendum: 12/05/18 at 1724 by JUAN PABLO SHELTON RT Amended: Links added.
--- NOTE | 2018-12-05 17:46 | NUR ---
COMPATIBILITY TEST ENGINEER NOTES ACCUCHECK DONE. BS 131 MG/DL. 2 UNITS HUM R GIVEN PER SLIDING SCALE LEFT THIGH.
--- NOTE | 2018-12-05 19:10 | NUR ---
TAPPER OPERATOR OPENING NOTES PT IN BED, OBTUNDED, OPENS EYES, SHILEY 6 TO MECHANICAL VENT, SETTINGS ORDERED, BREATHING EVEN AND UNLABORED. ON TELE MONITOR ST WITH HR 100s. NO SIGNS OF PAIN, JUAN MIGUEL PICC LINE C/D/I. WITH ONGOING TPN BAG #6 AT 65 ML/HR. AURY HD CATH SITE C/D/I, BRUIT AND THRILL NOTED. RECTAL TUBE IN PLACE, DRAINING BROWN/LIQUID STOOL NOTED 250 ML OUTPUT. SAFETY MEASURES IN PLACE. WILL TURN AND REPOSITION Q2 HOURS. CALL LIGHT WITHIN REACH, SAFETY MEASURES IN PLACE. WILL CONT TO MONITOR PT.
--- NOTE | 2018-12-05 19:31 | NUR ---
STONEWORK TRACER CLOSING NOTES PT IN BED, OBTUNDED, OPENS EYES, SHILEY 6 TO MECHANICAL VENT, SETTINGS ORDERED, BREATHING EVEN AND UNLABORED, ST HR 100s ON TELE MONITOR, NO SIGNS OF PAIN, JUAN MIGUEL PICC LINE C/D/I. WITH ONGOING TPN BAG #6 AT 65 ML/HR. AURY HD CATH SITE C/D/I, BRUIT AND THRILL NOTED. RECTAL TUBE IN PLACE, DRAINING BROWN/LIQUID STOOL NOTED 250 ML OUTPUT. SAFETY MEASURES IN PLACE. PERFORMED PRESCRIBED WOUND TREATMENT AND TURNED AND REPOSITIONED Q 2 HOURS. CALL LIGHT WITHIN REACH, SAFETY MEASURES IN PLACE. ALL NEEDS MET. NO OTHER SIGNIFICANT CHANGE IN CONDITION. ENDORSED TO NEXT SHIFT FOR JOHNATHAN. DR. GARCIA AT BEDSIDE EARLIER. DRESSING CHANGE TO ABDOMEN SURGICAL SITE. WELL TOLERATED BY PT.
[2018-12-05 20:00] VITALS: BP 145/56
[2018-12-05] MEDS: FLUCONAZOLE IN NS 100 MG in PREMIX 1 EA IV SCH ×2 (22:13)
[2018-12-06] VITALS (11 sets, daily range): BP systolic 106–162; BP diastolic 27–67
[2018-12-06] MEDS: BLOOD SUGAR DIAGNOSTIC 1 EACH STRIP IN SCH ×4 (05:23→23:47)
[2018-12-06] MEDS: INSULIN REGULAR, HUMAN 100 UNIT/ML 3 ML VIAL SQ PRN ×3 (05:25→23:52)
--- NOTE | 2018-12-06 07:15 | NUR ---
ALTERNATIVE FINANCING SPECIALIST CLOSING NOTES PT IN BED, OBTUNDED, OPENS EYES, SHILEY 6 TO MECHANICAL VENT, SETTINGS ORDERED, BREATHING EVEN AND UNLABORED. ON TELE MONITOR ST WITH HR 100s. NO SIGNS OF PAIN, JUAN MIGUEL PICC LINE C/D/I. WITH ONGOING TPN BAG #6 AT 65.715 ML/HR. AURY HD CATH SITE C/D/I, BRUIT AND THRILL NOTED. RECTAL TUBE IN PLACE, DRAINING BROWN/LIQUID STOOL NOTED 400 ML OUTPUT. SAFETY MEASURES IN PLACE. TURNED AND REPOSITIONED Q2 HOURS. CALL LIGHT WITHIN REACH, SAFETY MEASURES MAINTAINED. ALL MD ORDERS ATTENDED. ALL PT NEEDS ANTICIPATED AND MET. NO ACUTE CHANGES THROUGHOUT SHIFT. ENDORSED TO AM RN FOR JOHNATHAN.
--- NOTE | 2018-12-06 08:00 | NUR ---
TELE1/RN AM SHIFT INITIAL NOTES RECEIVED PT AWAKE IN BED, PT OBTUNDED, OPEN EYES, NO GRIMACING NOTED OR ACUTE CHANGE OF CONDITION. VENTILATOR DEPENDED, RATES SET PRESCRIBED, SATURATING @ 100%, RESPIRATIONS EVEN AND UNLABORED, LUNG SOUNDS CLEAR. SUCTIONED FOR AIRWAY CLEARANCE. ON TELE WITH SINUS TACHY, HR 119. PICC LINE PATENT WITH RETURN, FLUSHED. ON GOING TPN (#6) @ 65CC/HR. RECTAL TUBE NOTED WITH DARK BROWN LIQUID FECAL OUTPUT, GENERALIZED EDEMA. DIALYSIS TREATMENT INITIATED, BP 150/52, HR 105. PT IS COMFORTABLE AT THIS TIME, SCHEDULED AM MEDS TO BE GIVEN. CL WITHIN REACHED AND SAFETY MAINTAINED. ON GOING MONITORING.
[2018-12-06] MEDS: NEXIUM 40 MG VIAL IV SCH (09:31)
[2018-12-06] MEDS: MEROPENEM 500 MG in IV NS 0.9% 50 ML IV SCH ×2 (09:31→21:03)
[2018-12-06] MEDS: DAKINS QUARTER STRENGTH (0.125%) 480 ML BOTTLE TOP SCH (09:32)
[2018-12-06] MEDS: HYDROGEL DRESSING 90 GM TUBE TP SCH (09:33)
--- NOTE | 2018-12-06 10:30 | NUR ---
TELE1/BIOMETRICS INSTRUCTOR - DONE REMOVED 2L OF FLUID. BP 108/27, HR 111. PT TOLERATED PROCEDURE. ON GOING MONITORING.
[2018-12-06 12:53] LABS: BASOPHILS # (AUTO) 0.1 /CMM (0.0-0.2); BASOPHILS % (AUTO) 0.4 % (0.0-2.0); EOSINOPHILS % (AUTO) 0.4 % (0.0-6.0); LYMPHOCYTES # (AUTO) 1.2 /CMM (0.8-4.8); LYMPHOCYTES % (AUTO) 9.7 % (20.0-44.0); MEAN CORPUSCULAR HGB CONC 33 g/dl (31.0-36.0); MEAN CORPUSCULAR VOLUME 94 fL (82-100); MONOCYTES % (AUTO) 7.5 % (2.0-12.0); NEUTROPHILS # (AUTO) 10.4 /CMM (1.8-8.9); PLATELET COUNT (AUTO) 188 /CMM (150-450); WHITE BLOOD COUNT (AUTO) 12.7 K/uL (4.3-11.0)
[2018-12-06 13:09] LABS: CALCIUM, SERUM 7.4 mg/dL (8.5-10.1); CREATININE 1.4 mg/dL (0.6-1.3); PHOSPHORUS 3.9 mg/dL (2.5-4.9)
[2018-12-06 13:10] LABS: RED BLOOD CELL COUNT(AUTO) 1.82 MIL/uL (4.0-5.2)
[2018-12-06 13:35] LABS: HEMATOCRIT 17 % (33-45); HEMOGLOBIN 5.6 g/dL (11.5-14.8)
--- NOTE | 2018-12-06 13:38 | NUR ---
TELE1/RN CRITICAL LAB VALUES NOTIFIED DR. HUDDLESTON OF H&H VALUE (5.6, 17.00) PER MD WILL ORDER TO GIVE PT 1 UNIT OF PRBC, THEN RE-CHECK H & H AFTER TRANSFUSION. NOTED.
[2018-12-06 13:58] LABS: BAND % (MANUAL) 9 % (0.0-5.0); LYMPHOCYTES % (MANUAL) 13 % (16-48); NEUTROPHILS % (MANUAL) 67 (42-76)
[2018-12-06 13:59] LABS: METAMYELOCYTES % 3 % (0-0); MONOCYTES % (MANUAL) 6 % (0-11.0); MYELOCYTES % 2 % (0-0)
[2018-12-06] MEDS ORDERED: TPN BAG #8 IV PRN ×4 (14:00)
[2018-12-06] MEDS ORDERED: VANCOMYCIN 1 GM in IV D5W 250 ML IV ONE (15:00)
[2018-12-06] MEDS: FAT EMULSION 20% 500 ML in PREMIX 1 EA IV SCH (15:49)
--- NOTE | 2018-12-06 17:00 | NUR ---
TELE1/RN AFTERNOON ROUNDS PM CARE PROVIDED, NO CHANGE OF CONDITION. MONITORING.
--- NOTE | 2018-12-06 19:30 | NUR ---
CARDIAC CARE UNIT NURSE NOTE PATIENT REPORT GIVEN BEDSIDE. PATIENT OBTUNDED NON VERBAL. PATIENT ON RX VENT SETTINGS TOLERATING WELL. PATIENT O2 100%. PATIENT ON MONITOR ST 102 AT BASELINE PER MORNING SHIFT. PATIENT READJUSTED FOR COMFORT AND ORAL CARE PREFORMED. SAFETY PRECAUTIONS IN PLACE NO S/S OF DISTRESS. RN WILL CONTINUE TO MONITOR.
--- NOTE | 2018-12-06 19:30 | NUR ---
TELE1/RN AM SHIFT END NOTES NO ACUTE CHANGE OF CONDITION NOTED DURING THE SHIFT. ALL NEEDS MET. PT ENDORSED TO PM NURSE TO CONTINUE CARE. CL WITHIN REACHED AND SAFETY MAINTAINED.
[2018-12-06] MEDS: FLUCONAZOLE IN NS 100 MG in PREMIX 1 EA IV SCH ×2 (20:59)
[2018-12-06 21:19] LABS: BASOPHILS # (AUTO) 0.1 /CMM (0.0-0.2); BASOPHILS % (AUTO) 0.4 % (0.0-2.0); EOSINOPHILS % (AUTO) 0.4 % (0.0-6.0); HEMATOCRIT 21 % (33-45); LYMPHOCYTES # (AUTO) 1.6 /CMM (0.8-4.8); MEAN CORPUSCULAR HGB CONC 34 g/dl (31.0-36.0); MEAN CORPUSCULAR VOLUME 93 fL (82-100); MONOCYTES # (AUTO) 1.2 /CMM (0.1-1.30); MONOCYTES % (AUTO) 7.2 % (2.0-12.0); NEUTROPHILS # (AUTO) 13.2 /CMM (1.8-8.9); PLATELET COUNT (AUTO) 240 /CMM (150-450); RED BLOOD CELL COUNT(AUTO) 2.22 MIL/uL (4.0-5.2); WHITE BLOOD COUNT (AUTO) 16.1 K/uL (4.3-11.0)
[2018-12-07] VITALS (12 sets, daily range): BP systolic 120–181; BP diastolic 23–69
--- NOTE | 2018-12-07 02:00 | NUR ---
CNC MILL SET UP OPERATOR NOTE POST BLOOD TRANSFUSION COMPLETION AT 0148, PICC LINE NOTED TO BE LEAKING DURING FLUSH. STAT XRAY ORDERED TO VERIFY PLACEMENT. NEW IV STARTED R UPPER CHEST IV 22 G STARTED TO CONTINUE TPN TREATMENT. MD NOTIFIED. NURSING FURNACE ERECTOR NOTIFIED. PICC NURSE TO EVALUATE PICC LINE TOMORROW
[2018-12-07 03:43] LABS: BASOPHILS % (AUTO) 0.3 % (0.0-2.0); EOSINOPHILS % (AUTO) 0.4 % (0.0-6.0); HEMATOCRIT 26 % (33-45); HEMOGLOBIN 8.7 g/dL (11.5-14.8); LYMPHOCYTES # (AUTO) 1.6 /CMM (0.8-4.8); LYMPHOCYTES % (AUTO) 11.2 % (20.0-44.0); MEAN CORPUSCULAR HGB CONC 34 g/dl (31.0-36.0); MEAN CORPUSCULAR VOLUME 90 fL (82-100); MONOCYTES # (AUTO) 0.8 /CMM (0.1-1.30); MONOCYTES % (AUTO) 5.5 % (2.0-12.0); NEUTROPHILS # (AUTO) 11.6 /CMM (1.8-8.9); NEUTROPHILS % (AUTO) 82.6 % (43.0-81.0); PLATELET COUNT (AUTO) 227 /CMM (150-450); RED BLOOD CELL COUNT(AUTO) 2.86 MIL/uL (4.0-5.2)
--- NOTE | 2018-12-07 03:47 | NUR ---
SPORTS EQUIPMENT RACKER NOTE POST TRANSFUSION HGB INCREASED TO 8.7
[2018-12-07 03:58] LABS: CREATININE 1.8 mg/dL (0.6-1.3); MAGNESIUM 1.9 mg/dL (1.8-2.4); PHOSPHORUS 4.5 mg/dL (2.5-4.9); POTASSIUM 4.3 mmol/L (3.5-5.1)
[2018-12-07] MEDS: BLOOD SUGAR DIAGNOSTIC 1 EACH STRIP IN SCH ×3 (06:20→17:43)
[2018-12-07] MEDS: INSULIN REGULAR, HUMAN 100 UNIT/ML 3 ML VIAL SQ PRN ×3 (06:23→18:00)
[2018-12-07] MEDS ORDERED: VANCOMYCIN 500 MG in IV D5W 100 ML IV PRN (08:00)
--- NOTE | 2018-12-07 08:00 | NUR ---
TELE1/RN AM SHIFT INITIAL NOTES RECEIVED PT AWAKE IN BED, PT OBTUNDED, OPEN EYES, NO GRIMACING NOTED OR ACUTE CHANGE OF CONDITION. VENTILATOR DEPENDED, RATES SET PRESCRIBED, SATURATING @ 100%, RESPIRATIONS EVEN AND UNLABORED, LUNG SOUNDS CLEAR. SUCTIONED FOR AIRWAY CLEARANCE. ON TELE WITH SINUS TACHY, HR 107. PICC LINE, LOCKED AT THIS TIME, D/T LEAKING. PICC LINE NURSE TO REASSESS SIT. OTHER IV SITE WITH ON GOING IV INFUSION OF TPN#8 @ 65CC/HR AND LIPIDS @ 20CC/HR. ABDOMINAL WOUND SITE DRESSING INTACT AND DRY. RECTAL TUBE IN PLACED WITH DARK BROWN LIQUID FECAL OUTPUT. PT IS COMFORTABLE AT THIS TIME, SCHEDULED AM MEDS TO BE GIVEN. CL WITHIN REACHED AND SAFETY MAINTAINED. ON GOING MONITORING.
[2018-12-07] MEDS: NEXIUM 40 MG VIAL IV SCH (09:06)
[2018-12-07] MEDS: MEROPENEM 500 MG in IV NS 0.9% 50 ML IV SCH ×2 (09:06→21:18)
[2018-12-07] MEDS: HYDROGEL DRESSING 90 GM TUBE TP SCH (09:06)
[2018-12-07] MEDS: DAKINS QUARTER STRENGTH (0.125%) 480 ML BOTTLE TOP SCH (09:07)
[2018-12-07] MEDS ORDERED: IV NS 0.9% 250 ML IV PRN (09:30)
--- NOTE | 2018-12-07 11:00 | NUR ---
TELE1/RN ROUNDS - DR. JON UPDATED PT'S CONDITION. PT SEEN & EXAMINED BY DR. JON. NO NEW ORDER RECEIVED AT THIS TIME. MONITORING CONTINUED.
--- NOTE | 2018-12-07 11:15 | NUR ---
TELE1/RETAIL STOCK CLERK TX - COMPLETED REMOVED 3L OF FLUID. BP 120/23, HR 111. PT TOLERATED PROCEDURE. MONITORING CONTINUED.
[2018-12-07] MEDS ORDERED: SILVER NITRATE APPLICATOR 1 EA BOX TP ONE (13:00)
--- NOTE | 2018-12-07 18:30 | NUR ---
TELE1/RN ATTEMPT TO GIVE REPORT ATTEMPTED TWICE TO GIVE REPORT TO ADMITTING NURSE AT [facility] IN [place]. PER UNIT THE RECEIVING NURSE SUPPOSED TO BE NIRANJAN BUT IS UNAVAILABLE. NOTIFIED UNIT THAT PT IS EXPECTED TRANSPORT IS AT 1999, AND WILL TRY TO CALL TO GIVE REPORT NEXT SHIFT.
--- NOTE | 2018-12-07 19:30 | NUR ---
GANG SAWYER NOTE PATIENT REPORT GIVEN BEDSIDE. POC ENDORSED FOR TRANSFER OF CARE TO [facility]. PATIENT IN BED NON VERBAL ON RX VENT SETTINGS NO S/S OF RESP DISTRESS. PATIENT SATURATION 100% BREATHING EVEN AND UNLABORED. PATIENT HAS NO S/S OF DISCOMFORT PATIENT FLACC SCORE 1. FECAL TUBE INTACT NO S/S OF LEAKAGE. SAFETY PRECAUTIONS IN PLACE. PATIENT SR ON THE MONTOR HR 99. RN WILL CONTINUE TO MONITOR.
--- NOTE | 2018-12-07 19:30 | NUR ---
TELE1/RN AM SHIFT END NOTES ALL NEEDS MET. NO ACUTE CHANGE OF CONDITION NOTED DURING THE SHIFT. PT ENDORSED TO PM NURSE TO TRANSFER PT TO HIGHER LEVEL OF CARE.
--- NOTE | 2018-12-07 20:04 | NUR ---
DIRECTOR OF FEDERAL SALES NOTE PATIENT REPORT GIVEN TO JERI VILA AT [facility], PATIENT GOING TO ROOM 229 A.
--- NOTE | 2018-12-07 21:00 | NUR ---
LIQUOR ESTABLISHMENT MANAGER NOTE ZACHARY ARRIVED ON SCENE REPORT GIVEN TO TEAM. .
[2018-12-07] MEDS: FLUCONAZOLE IN NS 100 MG in PREMIX 1 EA IV SCH ×2 (21:18)
--- NOTE | 2018-12-07 21:38 | NUR ---
GAMING ASSOCIATE NOTE PATIENT TRANSFERRED OUT OF UNIT. TRANSFER OF CARE GIVEN OVER TO AMBULANZ.
== END 2018-12-07 23:01 | DRG 951 ==
LOC: ER 19:57 → TELE-TD 11-25 00:15 → TELE1 11-27 11:20
PROVIDERS: ADMIT Student in an Organized Health Care Education/Training Program; ATTEND Internal Medicine
PROC: 30233N1 Transfusion of Nonautologous Red Blood Cells into Peripheral Vein, Percutaneous Approach (ICD-10-PCS; principal; 2018-11-25)
PROC: 5A1955Z Respiratory Ventilation, Greater than 96 Consecutive Hours (ICD-10-PCS; principal; 2018-11-25)
PROC: 0J980ZZ Drainage of Abdomen Subcutaneous Tissue and Fascia, Open Approach (ICD-10-PCS; 2018-11-30)
PROC: 5A1D70Z Performance of Urinary Filtration, Intermittent, Less than 6 Hours Per Day (ICD-10-PCS; 2018-11-30)
PROC: 05H633Z Insertion of Infusion Device into Left Subclavian Vein, Percutaneous Approach (ICD-10-PCS; 2018-12-01)
PROC: B547ZZA Ultrasonography of Left Subclavian Vein, Guidance (ICD-10-PCS; 2018-12-01)
PROC: 5A1D70Z Performance of Urinary Filtration, Intermittent, Less than 6 Hours Per Day (ICD-10-PCS; 2018-12-02)
PROC: 0JB70ZZ Excision of Back Subcutaneous Tissue and Fascia, Open Approach (ICD-10-PCS; 2018-12-03)
PROC: 5A1D70Z Performance of Urinary Filtration, Intermittent, Less than 6 Hours Per Day (ICD-10-PCS; 2018-12-06)
PROC: 5A1D70Z Performance of Urinary Filtration, Intermittent, Less than 6 Hours Per Day (ICD-10-PCS; 2018-12-07)
DX: K94.22 Gastrostomy infection (principal); R65.20 Severe sepsis without septic shock; A41.9 Sepsis, unspecified organism; E43 Unspecified severe protein-calorie malnutrition; Z99.11 Dependence on respirator [ventilator] status; I96 Gangrene, not elsewhere classified; J96.11 Chronic respiratory failure with hypoxia; I12.0 Hypertensive chronic kidney disease with stage 5 chronic kidney disease or end stage renal disease; N18.6 End stage renal disease; L89.153 Pressure ulcer of sacral region, stage 3; R53.2 Functional quadriplegia; D68.59 Other primary thrombophilia; E87.2 Acidosis; E11.22 Type 2 diabetes mellitus with diabetic chronic kidney disease; N39.0 Urinary tract infection, site not specified; E78.5 Hyperlipidemia, unspecified; Z99.2 Dependence on renal dialysis; L03.311 Cellulitis of abdominal wall; Y83.8 Other surgical procedures as the cause of abnormal reaction of the patient, or of later complication, without mention of misadventure at the time of the procedure; Y73.8 Miscellaneous gastroenterology and urology devices associated with adverse incidents, not elsewhere classified; Y92.129 Unspecified place in nursing home as the place of occurrence of the external cause; R13.10 Dysphagia, unspecified; E11.51 Type 2 diabetes mellitus with diabetic peripheral angiopathy without gangrene; D63.8 Anemia in other chronic diseases classified elsewhere; K21.9 Gastro-esophageal reflux disease without esophagitis; E55.9 Vitamin D deficiency, unspecified; I48.91 Unspecified atrial fibrillation; K80.20 Calculus of gallbladder without cholecystitis without obstruction; L02.211 Cutaneous abscess of abdominal wall; Z74.01 Bed confinement status; Z89.512 Acquired absence of left leg below knee; Z79.4 Long term (current) use of insulin; I95.3 Hypotension of hemodialysis; E87.70 Fluid overload, unspecified; D64.9 Anemia, unspecified; L89.610 Pressure ulcer of right heel, unstageable; E11.52 Type 2 diabetes mellitus with diabetic peripheral angiopathy with gangrene; T14.8XXA Other injury of unspecified body region, initial encounter; X58.XXXA Exposure to other specified factors, initial encounter; Y92.9 Unspecified place or not applicable
CPT/HCPCS: 31720; 36415; 36569; 36600; 71045-TC; 80048-TC; 80053-TC; 80061-TC; 80076-TC; 80202-TC; 81000-TC; 82272-TC; 82728-TC; 82803-TC; 82962-TC; 83540-TC; 83605-TC; 83735-TC; 84100-TC; 84443-TC; 84484-TC; 85025-TC; 85730-TC; 86706; 86850-TC; 86921-TC; 87040-TC; 87081-TC; 87086-TC; 87340; 90935-TC; 94002-TC; 94003-TC; 94760-TC; 94762-TC; 94799-TC; 99082-TC; A4216; A6248; A6253; A6402; A6403; C1751; G0378; J0360; J0885; J1450; J1815; J2185; J2704; J2916; J3370; J3475; J3490; J7030; J7040; J7042; J7050; J7060; P9016-BL; P9047